=== PATIENT | female | born 1985 | race African-American/Black ===

== ENCOUNTER 2021-10-16 14:17 | Emergency (ER) | payer OTHER, SELFPAY ==
--- NOTE | ~2021-10-16 | US_ITS ---
EXAMINATION: US ABDOMEN LIMITED CLINICAL INFORMATION: Right upper quadrant pain, nausea, vomiting. COMPARISON: None TECHNIQUE: Real-time imaging of the right upper quadrant abdominal viscera. FINDINGS: PANCREAS: Normal. LIVER: The liver is normal in size. The liver contour is normal. Parenchymal echogenicity is increased suggestive of hepatic steatosis or other hepatocellular disease. No focal hepatic lesion. There is no intrahepatic biliary duct dilatation seen. GALLBLADDER: Normal. The gallbladder is physiologically distended without evidence of stones, sludge, polyps, wall thickening or pericholecystic fluid. COMMON BILE DUCT: Normal in caliber measuring 0.2 cm in diameter. RIGHT KIDNEY: Normal. No hydronephrosis. No renal calculi or focal parenchymal lesions. The kidney measures 12.2 cm in maximum dimension. FREE FLUID: None. US/US abdomen limited IMPRESSION: Hyperechoic liver parenchyma suggesting steatosis or other hepatocellular disease. Otherwise, unremarkable appearance of the visualized right upper quadrant structures.
[2021-10-16 14:19] VITALS: BP 141/91; PULSE 112; RESP 24; TEMP 35.9; O2SAT 100; BMI 28.0
[2021-10-16] MEDS: Ondansetron ODT 4 MG TAB.RAPDIS TRANSLINGU (14:24)
[2021-10-16 14:40] LABS: MANUAL DIFF FLAG NO
[2021-10-16 14:46] LABS: Basophils Percent Auto 0.3 % (0-2); Hematocrit 37.4 % (37.0-47.0); Hemoglobin 12.5 g/dl (12.0-16.0); Imm Gran Abs Auto 0.04 X10*3/uL (0.00-0.03); Imm Gran Pct Auto 0.4 % (0.0-0.4); Lymphocytes Absolute Auto 2.6 X10*3/uL (1.2-4.9); Lymphocytes Percent Auto 24.9 % (20-40); Mean Corpuscular HGB Conc 33.4 g/dl (31.0-35.0); Mean Corpuscular Hemoglobin 26.4 pg (27.0-33.0); Mean Corpuscular Volume 79.1 fL (80.0-98.0); Mean Platelet Volume 11.7 fL (9.4-12.3); Monocytes Absolute Auto 0.5 X10*3/uL (0.1-1.2); Monocytes Percent Auto 4.6 % (2-11); Neutrophils Absolute Auto 7.2 x10*3/uL (2.0-8.3); Neutrophils Percent Auto 69.8 % (45-73); Platelet Count 244 X10*3/uL (160-400); Red Blood Count 4.73 X10*6/uL (4.20-5.50); Red Cell Distribution Width 13.7 % (11.0-16.0); White Blood Count 10.4 X10*3/uL (4.8-10.8)
[2021-10-16 14:55] LABS: COVID-19 Test Negative (Negative)
[2021-10-16 14:59] LABS: Alanine Aminotransferase 19 U/L (0-31); Albumin Level 5.1 g/dL (3.5-5.0); Alkaline Phosphatase 62 U/L (39-117); Anion Gap 22 (12-20); Aspartate Amino Transferase 14 U/L (5-31); Bilirubin Direct 0.2 mg/dL (0.0-0.5); Bilirubin Total 0.4 mg/dL (0.0-1.0); Blood Urea Nitrogen 11 mg/dL (9-16); Calcium 9.9 mg/dL (8.4-10.2); Carbon Dioxide 18 mmol/L (22-29); Chloride 107 mmol/L (96-108); Creatinine Clr Calc Pharmacy 96.9; Estimated Glomerular Filt Rate > 60; Glucose Random 180 mg/dL (60-115); Lipase 16 U/L (8-78); Potassium 4.1 mmol/L (3.3-5.1); Sodium 143 mmol/L (135-145); Total Protein 8.3 g/dL (6.5-8.0)
--- NOTE | 2021-10-16 15:08 | ECG_ITS ---
Test Reason : VOMITING Blood Pressure : / mmHG Vent. Rate : 106 BPM Atrial Rate : 106 BPM P-R Int : 178 ms QRS Dur : 084 ms QT Int : 352 ms P-R-T Axes : 055 031 020 degrees QTc Int : 467 ms Sinus tachycardia Nonspecific T wave abnormality Abnormal ECG No previous ECGs available Referred By: Generic ED Physician Electronically Signed By:GABBY MARIN
[2021-10-16 15:13] LABS: Glucose, Whole Blood 177 mg/dL (60-115)
[2021-10-16 15:55] LABS: Ethanol < 10 mg/dL
[2021-10-16 16:05] LABS: HCG Quantitative < 2 mIU/mL
[2021-10-16 16:20] VITALS: BP 127/85; PULSE 92; RESP 20; TEMP 36.8; O2SAT 100
[2021-10-16] MEDS: 0.9 % Sodium Chloride 1,000 ML 999 ML IV ×2 (16:41→17:37)
[2021-10-16] MEDS: LORazepam 1 MG TABLET PO (16:45)
[2021-10-16] MEDS: Meclizine HCl 25 MG TABLET PO (16:45)
[2021-10-16 16:47] LABS: Magnesium 1.8 mg/dL (1.6-2.6)
--- NOTE | 2021-10-16 17:07 | ED_ITS ---
HPI - General Adult General Chief complaint: Nausea/Vomiting/Diarrhea Stated complaint: Vomiting Time Seen by Provider: 10/16/21 15:24 Source: patient Mode of arrival: ambulatory History of Present Illness HPI narrative: 35-year-old female with a past medical history of vertigo presenting to the ED complaining of abdominal pain, nausea, and vomiting since 22:00 last night. Reports emesis Q 10 minutes and unable to keep fluids down. Also reports room spinning dizziness similar to her vertigo, unable to take her meds today. Admits dizziness worse with position changes and head movement. patient also reports upper extremity contractures since ED arrival. Denies headache, vision change/ loss, fever/ chills, diarrhea, dysuria / hematuria, hematemesis, melena/bloody BMs, suspicious food intake Onset (ago): hour(s) Related Data Allergies Allergy/AdvReac Type Severity Reaction Status Date / Time oxycodone Allergy Anaphylaxis Verified 10/16/21 14:24 Review of Systems Review of Systems: Constitutional: No Fever, No Chills, No Fatigue, No Malaise ENT/Mouth:No Ear Pain, No Nasal Congestion, No sore throat, No Rhinorrhea, No Swallowing Difficulty Eyes: No Eye Pain, No Swelling, No Redness, No Vision Changes Cardiovascular: No Chest Pain, No SOB, No Edema, No Palpitations Respiratory: No Cough, No Sputum, No Dyspnea Gastrointestinal: + Nausea, + Vomiting, No Diarrhea, No Constipation, + Abdominal pain, No Hematochezia, No Melena Genitourinary: No Dysuria, No Urinary Frequency, No Hematuria, No Urinary Incontinence/retention, No Urgency, No Flank Pain Musculoskeletal: No joint pain, No Myalgias, No Joint Swelling Skin: No Skin Lesions, No rash Neuro: No Weakness, No Numbness, No Paresthesias, No Loss of Consciousness, + Dizziness, No Headache Yes all other systems are reviewed and are negative Constitutional: Constitutional: Reports as per [facility] Past Medical History Attestation statement: The following information was validated with the patient. Social History Social History Advance Directives: No Advance Directives Information Provided: No Physical Exam ED Vital Signs: Vital Signs - 24 hr 10/16/21 14:19 10/16/21 16:20 10/16/21 17:38 Temperature 96.6 F L 98.2 F 98.5 F Pulse Rate 112 H 92 88 Respiratory Rate 24 H 20 14 Blood Pressure 141/91 H 127/85 121/75 Pulse Oximetry 100 100 100 Oxygen Delivery Method Room Air Room Air Room Air BMI result Body Mass Index 28.0 Const Other: Hyperventilating, anxious General: healthy appearing and anxious Orientation/consciousness: patient oriented x3 Limitations: no limitations HENMT Head: Yes normal to inspection and Yes atraumatic Ears: hearing grossly normal bilaterally General nose exam: Normal external nose present Face and sinus: Yes normal facial exam Mouth: Normal oral and palatal mucosa present Eyes General: appearance normal, both eyes and all related structures Pupils: Equal, round and reactive pupils present EOM: EOMs intact bilaterally Neck Neck: Yes normal visual inspection and Yes no meningeal signs Resp Effort & Inspection: normal respiratory effort and no respiratory distress Auscultation: clear to auscultation bilaterally, no crackles, no rales, no rhonchi and no wheezes Cardio Rate: regular rate Heart sounds: S1 normal heart sound present and S2 normal heart sound present GI Inspection: Yes normal to inspection Palpation (GI): Soft to palpation, Tenderness to palpation present (GI) in the RUQ; with no rebound tenderness, no guarding and not rigid General: Yes no CVA tenderness Back/Spine/Pelvis Back: no CVA tenderness Skin Rashes: no rashes Wounds: no wounds Neuro Other: upper extremities contracted during evaluation. Neurovascularly intact x4 General: patient oriented x3, tone normal and no meningeal signs Cranial nerves: Yes Equal, round and reactive pupils present Cognition (Neuro): normal cognition Extrem General: Yes normal to inspection Course Course Course Narrative: -1723-- no leukocytosis. CO2 18 as expected from hyperventilation. Small anion gap of 22 likely from dehydration/ketosis. Beta quant negative - patient's symptoms have resolved / improved after p.o. Ativan. Denies dizziness at present. - patient refused CT as reports symptomatic improvement at present does not feel necessary anymore at this time > 1728- on re-evaluation patient is calm and cooperative, comfortable, moving upper extremities. CT head canceled -183--US abdomen limited IMPRESSION: Hyperechoic liver parenchyma suggesting steatosis or other hepatocellular disease. Otherwise, unremarkable appearance of the visualized right upper quadrant structures. > patient is tolerating p.o. in the ED without nausea or vomiting. Results discussed with patient including worrisome signs and symptoms and strict return precautions, and when to return to the emergency department. They verbalized understanding and feel safe for discharge at this time. Medical Decision Making MDM Narrative Medical decision making narrative: 35-year-old female with a past medical history of vertigo presenting to the ED complaining of abdominal pain, nausea, and vomiting since 22:00 last night. on exam afebrile, tachycardic and tachypneic likely from hyperventilation / anxiety on exam, abdomen soft with RUQ tenderness, no rebound or guarding. Concern for cholecystitis /lithiasis vs pancreatitis. Upper extremity contractures noted likely from increased anxiety vs metabolic abnormalities. Concern for BPPV/ve rtigo. low suspicion for ICH, appendicitis/diverticulitis, UTI, CVT or CVA plan: Labs, UA, head CT, abdomen ultrasound, IVF, p.o. Ativan, re-evaluate Medical Records Medical records reviewed: Yes I reviewed the patient's medical records. Lab Data Lab results reviewed: Yes I reviewed the patient's lab results. Result diagrams: 10/16/21 14:32 10/16/21 14:32 Labs: Lab Results 10/16/21 10/16/21 10/16/21 Range/Units 14:32 14:32 14:32 WBC 10.4 (4.8-10.8) X10*3/uL RBC 4.73 (4.20-5.50) X10*6/uL Hgb 12.5 (12.0-16.0) g/dl Hct 37.4 (37.0-47.0) % MCV 79.1 L (80.0-98.0) fL MCH 26.4 L (27.0-33.0) pg MCHC 33.4 (31.0-35.0) g/dl RDW 13.7 (11.0-16.0) % Plt Count 244 (160-400) X10*3/uL MPV 11.7 (9.4-12.3) fL Immature Gran % (Auto) 0.4 (0.0-0.4) % Neut % (Auto) 69.8 (45-73) % Lymph % (Auto) 24.9 (20-40) % [place] % (Auto) 4.6 (2-11) % Eos % (Auto) 0.0 (0-4) % Baso % (Auto) 0.3 (0-2) % Lymph # (Auto) 2.6 (1.2-4.9) X10*3/uL [place] # (Auto) 0.5 (0.1-1.2) X10*3/uL Eos # (Auto) 0.0 (0.0-0.4) X10*3/uL Baso # (Auto) 0.0 (0.0-0.2) X10*3/uL Abs Immat Gran (auto) 0.04 H (0.00-0.03) X10*3/uL Absolute Neuts (auto) 7.2 (2.0-8.3) x10*3/uL Absolute Nucleated RBC 0.000 (0.0-0.012) X10*3/uL Nucleated RBC % (auto) 0.0 (0.0-0.2) /100WBC Sodium 143 (135-145) mmol/L Potassium 4.1 (3.3-5.1) mmol/L Chloride 107 (96-108) mmol/L Carbon Dioxide 18 L (22-29) mmol/L Anion Gap 22 H (12-20) BUN 11 (9-16) mg/dL Creatinine 0.94 (0.5-1.4) mg/dL Estim Creat Clear Calc 96.9 Estimated GFR > 60 POC Glucose (60-115) mg/dL Random Glucose 180 H (60-115) mg/dL Calcium 9.9 (8.4-10.2) mg/dL Magnesium 1.8 (1.6-2.6) mg/dL Total Bilirubin 0.4 (0.0-1.0) mg/dL Direct Bilirubin 0.2 (0.0-0.5) mg/dL AST 14 (5-31) U/L ALT 19 (0-31) U/L Alkaline Phosphatase 62 (39-117) U/L Total Protein 8.3 H (6.5-8.0) g/dL Albumin 5.1 H (3.5-5.0) g/dL Lipase 16 (8-78) U/L Beta HCG, Quant < 2 mIU/mL Ethyl Alcohol < 10 mg/dL COVID-19 ([facility]) Negative (Negative) COVID-19 Clin Com See Note 10/16/21 Range/Units 15:07 WBC (4.8-10.8) X10*3/uL RBC (4.20-5.50) X10*6/uL Hgb (12.0-16.0) g/dl Hct (37.0-47.0) % MCV (80.0-98.0) fL MCH (27.0-33.0) pg MCHC (31.0-35.0) g/dl RDW (11.0-16.0) % Plt Count (160-400) X10*3/uL MPV (9.4-12.3) fL Immature Gran % (Auto) (0.0-0.4) % Neut % (Auto) (45-73) % Lymph % (Auto) (20-40) % [place] % (Auto) (2-11) % Eos % (Auto) (0-4) % Baso % (Auto) (0-2) % Lymph # (Auto) (1.2-4.9) X10*3/uL [place] # (Auto) (0.1-1.2) X10*3/uL Eos # (Auto) (0.0-0.4) X10*3/uL Baso # (Auto) (0.0-0.2) X10*3/uL Abs Immat Gran (auto) (0.00-0.03) X10*3/uL Absolute Neuts (auto) (2.0-8.3) x10*3/uL Absolute Nucleated RBC (0.0-0.012) X10*3/uL Nucleated RBC % (auto) (0.0-0.2) /100WBC Sodium (135-145) mmol/L Potassium (3.3-5.1) mmol/L Chloride (96-108) mmol/L Carbon Dioxide (22-29) mmol/L Anion Gap (12-20) BUN (9-16) mg/dL Creatinine (0.5-1.4) mg/dL Estim Creat Clear Calc Estimated GFR POC Glucose 177 H (60-115) mg/dL Random Glucose (60-115) mg/dL Calcium (8.4-10.2) mg/dL Magnesium (1.6-2.6) mg/dL Total Bilirubin (0.0-1.0) mg/dL Direct Bilirubin (0.0-0.5) mg/dL AST (5-31) U/L ALT (0-31) U/L Alkaline Phosphatase (39-117) U/L Total Protein (6.5-8.0) g/dL Albumin (3.5-5.0) g/dL Lipase (8-78) U/L Beta HCG, Quant mIU/mL Ethyl Alcohol mg/dL COVID-19 ([facility]) (Negative) COVID-19 Clin Com Discharge Plan Discharge Clinical Impression: Nausea & vomiting, Abdominal pain, Dizziness
[2021-10-16 17:38] VITALS: BP 121/75; PULSE 88; RESP 14; TEMP 36.9; O2SAT 100
== END 2021-10-16 18:46 | disposition home or self-care (01) ==
PROVIDERS: Physician Assistant; Emergency Provider Emergency Medicine
DX: R42 Dizziness and giddiness (principal); R11.2 Nausea with vomiting, unspecified; R10.9 Unspecified abdominal pain; Z20.822 Contact with and (suspected) exposure to COVID-19
CPT/HCPCS: 36415; 76705; 80048; 80076; 82077; 82947; 83690; 83735; 84702; 85025; 87635; 93005; 96360; 99284

== ENCOUNTER 2023-08-20 09:14 | Emergency (ER) | payer OTHER, SELFPAY ==
--- NOTE | 2023-08-20 | ECG_ITS ---
Test Reason : ABD PAIN, BACK PAIN Blood Pressure : / mmHG Vent. Rate : 073 BPM Atrial Rate : 073 BPM P-R Int : 202 ms QRS Dur : 086 ms QT Int : 364 ms P-R-T Axes : 027 043 031 degrees QTc Int : 401 ms Normal sinus rhythm Normal ECG When compared with ECG of 16-OCT-2021 15:12, Nonspecific T wave abnormality, improved in Lateral leads QT has shortened Referred By: Angela Morales Electronically Signed By:Binh Hanna
--- NOTE | ~2023-08-20 | CT_ITS ---
EXAMINATION: CT ABDOMEN AND PELVIS WITH CONTRAST CLINICAL INFORMATION: LUQ, LLQ pain COMPARISON: 12/20/[address] scan TECHNIQUE: Multidetector volumetric imaging was performed from the superior aspect of the liver through the pubic symphysis following administration of 85 mL Omnipaque 300 intravenous contrast. Sagittal and coronal reformatted images were obtained on the technologist workstation.. This CT examination was performed using dose optimization techniques as appropriate, variously including the following: *Automated exposure control *Adjustment of mA and/or kV according to patient size (this includes techniques or standardized protocols for targeted exams where dose is matched to indication/reason for exam; i.e. extremities or head) *Use of iterative reconstruction technique DLP: 555 mGy-cm FINDINGS: LUNG BASES: The visualized lung bases are unremarkable. LIVER, GALLBLADDER, AND BILIARY TREE: The liver is normal in size, shape, and attenuation. No focal hepatic lesion or biliary ductal dilatation is present. The gallbladder is unremarkable with no evidence of radiopaque gallstones, gallbladder wall thickening, or obvious pericholecystic inflammatory changes. PANCREAS: Unremarkable. SPLEEN: Unremarkable. ADRENAL GLANDS: Unremarkable. KIDNEYS AND URETERS: Left-sided hydronephrosis and hydroureter with mild delayed left-sided nephrogram phase. The left ureter is dilated up to a 4 mm calcification in the proximal left ureter at the level of L3/L4. Contralateral right kidney unremarkable BLADDER: Unremarkable. GASTROINTESTINAL TRACT: The small and large bowel are unremarkable. The appendix is unremarkable. ABDOMINAL WALL: No significant hernia is appreciated. LYMPHOVASCULAR STRUCTURES: No lymphadenopathy. The aorta is unremarkable. PELVIC VISCERA: Unremarkable. OSSEOUS STRUCTURES: Unremarkable. CT/CT abdomen pelvis w IV con IMPRESSION: Left-sided hydronephrosis and hydroureter extending up to a 4 mm calcification in the proximal left ureter at the level of L3/L4.
--- NOTE | 2023-08-20 09:26 | ED.ABDPAIN ---
HPI - Abdominal Pain General Chief Complaint: Abdominal Pain Stated Complaint: abd pain Time Seen by Provider: 08/20/23 09:26 Source: patient and RN notes reviewed Mode of arrival: ambulatory Limitations: no limitations History of Present Illness ED Provider: Angela Morales PA-C HPI narrative: This is a 37 [id number], with no known medical problems, who presents emergency department with complaints of severe left-sided abdominal pain which started this morning. She states that she has had sharp constant left-sided abdominal pain since awaking this morning. She also endorses nausea. She denies fevers, chills, chest pain, shortness of breath, vomiting, diarrhea or constipation. No chance of , states that her last period was last week, and ended yesterday. No abnormal vaginal discharge. Patient states that she had slight burning with urination last week which resolved with her menses. She states that she has this cyclically around her menses ever since a ?traumatic last year. No other complaints or concerns at this time. MD elicited complaint: abdominal pain Pertinent past history: none Onset (ago): hour(s) Pain Consistency: constant Location: LUQ and LLQ Severity: severe Pain scale (0-10): 10 Quality: stabbing Radiation: L flank Exacerbating factors: nothing Relieving factors: nothing Associated symptoms: nausea Related Data Previous Rx's ?Medication ?Instructions ?Recorded ondansetron 4 mg disintegrating 4 mg PO Q8H PRN nausea and 10/16/21 tablet vomiting #10 tabs ketorolac 10 mg tablet 10 mg PO Q6H PRN pain 5 days #20 08/20/23 tabs ondansetron 4 mg disintegrating 4 mg PO Q6H PRN nausea and 08/20/23 tablet vomiting #14 tabs prednisone 20 mg tablet 20 mg PO DAILY 5 days #5 tabs 08/20/23 tamsulosin 0.4 mg capsule (Flomax) 0.4 mg PO DAILY 2 weeks #14 caps 08/20/23 Allergies Allergy/AdvReac Type Severity Reaction Status Date / Time oxycodone Allergy Anaphylaxis Verified 08/20/23 09:29 Review of Systems Review of Systems Yes all other systems are reviewed and are negative Constitutional: Reports as per [facility] Past Medical History Attestation statement: The following information was validated with the patient. Social History Social History Smoked in Last 30 Days: No Use of substances other than those prescribed or required for medical reasons: No Advance Directives: No Advance Directives Information Provided: Yes Do you have a plan to hurt others: No Plan Physical Exam ED Vital Signs: Vital Signs - 24 hr 08/20/23 09:27 08/20/23 10:24 08/20/23 13:06 Temperature 98 F 98 F Pulse Rate 80 82 82 Respiratory Rate 16 18 18 Blood Pressure 165/108 H 146/90 H 146/77 H Pulse Oximetry 99 100 99 Oxygen Delivery Method Room Air Room Air Room Air 08/20/23 14:13 Temperature 98 F Pulse Rate 82 Respiratory Rate 18 Blood Pressure 146/77 H Pulse Oximetry 99 Oxygen Delivery Method Room Air BMI result Body Mass Index 28.2 Const General: cooperative, comfortable and no acute distress Orientation/consciousness: patient oriented x3 Limitations: no limitations HENMT Head: Yes normal to inspection, Yes normocephalic and Yes atraumatic Ears: hearing grossly normal bilaterally General nose exam: Normal external nose present Face and sinus: Yes normal facial exam Mouth: Normal oral and palatal mucosa present, oropharynx normal and moist mucous membranes Throat: Yes posterior oropharynx normal Eyes General: appearance normal, both eyes and all related structures Eyelids: Yes eyelids normal Conjunctivae: conjunctivae normal Sclerae: sclerae normal Pupils: Equal, round and reactive pupils present EOM: EOMs intact bilaterally Neck Neck: Yes normal visual inspection, Yes full ROM and Yes no lymphadenopathy Lymphatic: no lymphadenopathy noted Chest Chest palpation & inspection: normal inspection of the chest Resp Effort & Inspection: normal respiratory effort and able to speak in complete sentences Auscultation: clear to auscultation bilaterally, no crackles, no rales, no rhonchi and no wheezes Cardio Rate: regular rate Rhythm: regular rhythm Heart sounds: S1 normal heart sound present and S2 normal heart sound present GI Other: Abdomen is soft, with exquisite tenderness in the left upper and left lower quadrant,, with guarding. No rebound. Inspection: Yes normal to inspection Other: examination performed with coat maker, nuclear plant instrument technician present during the entirety. No cervical motion tenderness General: Yes Bimanual renal exam normal bilaterally External Female Exam: normal external appearance and normal appearance of the urethra Speculum Exam - Vagina: normal appearance of the vagina, normal palpation and normal vaginal discharge Speculum Exam - Cervix: normal appearance of the cervix, normal palpation and Cervical os closed Bimanual exam- vagina & uterus: normal palpation, normal palpation and uterine shape normal Bimanual Exam- Adnexa, other: normal adnexae and no tenderness Skin General skin exam: no rashes or lesions noted Trauma: no lacerations or abrasions Wounds: no wounds Neuro General: patient oriented x3 and moves all extremities Cranial nerves: Yes Equal, round and reactive pupils present Extrem General: Yes normal to inspection Right upper extremity: normal to inspection Left upper extremity: normal to inspection Right lower extremity: normal to inspection Left lower extremity: normal to inspection Course Reevaluation(s) Reevaluation #1: She is feeling much better after receiving Toradol, smiling, cheerful. Will continue to monitor pending CT scan. Time: 10:35 Reevaluation #2: CT scan returns revealing a left-sided hydronephrosis and hydroureter extending up to a 4 mm calcification in the proximal left ureter at the level of L3-L4. Discussed case with Dr. Vogel, recommending prednisone and Flomax. Will follow-up with patient outpatient. Upon discussion of this, patient is requesting a pelvic exam as she has had some foul smelling vaginal discharge around her menses. She states that this has been occurring for several months but has never been followed by her OBGYN. She denies any unusual discharge. Time: 11:55 Reevaluation #3: examination was performed with coat maker present, no acute abnormalities seen, will send out testing for further evaluation, advised that we will call with any normal results. She understands agrees with plan. Pain is feeling much better after receiving Tylenol and Toradol. Given return precautions. She understands and agrees with plan Patient stable for discharge. Medical Decision Making Medical Decision Making MDM Narrative: This is a 37-year-old female, with no known medical problems, who presents department with complaints of left-sided abdominal pain starting this morning. On arrival, blood pressure 165/108, patient appears to be uncomfortable secondary to pain. Left upper and left lower quadrant exquisite tenderness palpation. She endorses nausea. Differential diagnoses include SBO, diverticulitis, diverticulosis, gastroenteritis, nephrolithiasis, obstructive uropathy. Given severity of pain, will medicate with IV fluids, Zofran, and Toradol. She has an allergy to oxycodone which causes anaphylaxis, she is unsure if she is ever taken any other narcotic pain medication before. Plan: Labs, Zofran, Toradol, fluids, CT abdomen with IV contrast Differential Diagnosis Differential Diagnoses: The differential diagnosis associated with the presentation includes See above Admission/Observation Consideration of admission/observation: Escalation of care including admission/observation considered Lab Data MDM Lab Attestation statement: I reviewed the patient's lab results. No leukocytosis, H&H stable, lactic acidosis 2.6, repeat 1.9, hyperglycemia 241. 08/20/23 10:03 08/20/23 10:02 Labs: Lab Results 08/20/23 08/20/23 08/20/23 Range/Units 10:02 10:03 10:11 WBC 6.0 (4.8-10.8) X10*3/uL RBC 4.49 (4.20-5.50) X10*6/uL Hgb 12.2 (12.0-16.0) g/dl Hct 36.5 L (37.0-47.0) % MCV 81.3 (80.0-98.0) fL MCH 27.2 (27.0-33.0) pg MCHC 33.4 (31.0-35.0) g/dl RDW 13.5 (11.0-16.0) % Plt Count 218 (160-400) X10*3/uL MPV 11.9 (9.4-12.3) fL Immature Gran % (Auto) 0.3 (0.0-0.4) % Neut % (Auto) 44.8 L (45-73) % Lymph % (Auto) 45.4 H (20-40) % [place] % (Auto) 6.3 (2-11) % Eos % (Auto) 2.7 (0-4) % Baso % (Auto) 0.5 (0-2) % Lymph # (Auto) 2.7 (1.2-4.9) X10*3/uL [place] # (Auto) 0.4 (0.1-1.2) X10*3/uL Eos # (Auto) 0.2 (0.0-0.4) X10*3/uL Baso # (Auto) 0.0 (0.0-0.2) X10*3/uL Abs Immat Gran (auto) 0.02 (0.00-0.03) X10*3/uL Absolute Neuts (auto) 2.7 (2.0-8.3) x10*3/uL Absolute Nucleated RBC 0.000 (0.0-0.012) X10*3/uL Nucleated RBC % (auto) 0.0 (0.0-0.2) /100WBC Sodium 137 (135-145) mmol/L Potassium 4.1 (3.3-5.1) mmol/L Chloride 103 (96-108) mmol/L Carbon Dioxide 24 (22-29) mmol/L Anion Gap 14 (12-20) BUN 8 L (9-16) mg/dL Creatinine 0.84 (0.5-1.4) mg/dL Estim Creat Clear Calc 106.5 Estimated GFR > 60 Random Glucose 241 H (60-115) mg/dL Lactic Acid 2.6 H* (0.5-2.0) mmol/L Lactic Acid F/U @ 2Hr (0.5-2.0) mmol/L Calcium 9.4 (8.4-10.2) mg/dL Magnesium 1.9 (1.6-2.6) mg/dL Total Bilirubin 0.4 (0.0-1.0) mg/dL Direct Bilirubin 0.1 (0.0-0.5) mg/dL AST 14 (5-31) U/L ALT 16 (0-31) U/L Alkaline Phosphatase 58 (39-117) U/L Troponin I High Sens 3.0 (<3.5-17.0) ng/L Total Protein 7.5 (6.5-8.0) g/dL Albumin 4.5 (3.5-5.0) g/dL Lipase 30 (8-78) U/L Beta HCG, Quant < 2 mIU/mL Urine Color Yellow Urine Appearance Clear Urine pH 7.0 (5.0-9.0) Ur Specific Hudson 1.015 (1.005-1.025) Urine Protein Trace (Neg-Trace) mg/dL Urine Glucose (UA) 100 H (Negative) mg/dL Urine Ketones Negative (Negative) mg/dL Urine Blood Large (3+) H (Negative) Urine Nitrite Negative (Negative) Ur Leukocyte Esterase Negative (Negative) Urine RBC >20 H (0-2) /HPF Urine WBC 0-5 (0-5) /HPF Ur Squamous Epith Cells 0-2 (0-2) /HPF Urine Bacteria None Seen (None Seen) Hyaline Casts 0-2 (0-2) /LPF Chlam trachomat DNA PCR (Not Detect.) Influenza Type A (PCR) NEGATIVE (Negative) Influenza Type B (PCR) NEGATIVE (Negative) N.gonorrhoeae DNA (PCR) (Not Detect.) RSV RNA Qual (PCR) NEGATIVE (Negative) SARS-CoV-2 RNA (RT-PCR) NEGATIVE (Negative) T. vaginalis (PCR) (Not Detect) Bact Vaginosis (PCR) (Negative) C. krusei/glabrata (PCR) (Not Detect) Lois group (PCR) (Not Detect) 08/20/23 08/20/23 Range/Units 12:50 12:53 WBC (4.8-10.8) X10*3/uL RBC (4.20-5.50) X10*6/uL Hgb (12.0-16.0) g/dl Hct (37.0-47.0) % MCV (80.0-98.0) fL MCH (27.0-33.0) pg MCHC (31.0-35.0) g/dl RDW (11.0-16.0) % Plt Count (160-400) X10*3/uL MPV (9.4-12.3) fL Immature Gran % (Auto) (0.0-0.4) % Neut % (Auto) (45-73) % Lymph % (Auto) (20-40) % [place] % (Auto) (2-11) % Eos % (Auto) (0-4) % Baso % (Auto) (0-2) % Lymph # (Auto) (1.2-4.9) X10*3/uL [place] # (Auto) (0.1-1.2) X10*3/uL Eos # (Auto) (0.0-0.4) X10*3/uL Baso # (Auto) (0.0-0.2) X10*3/uL Abs Immat Gran (auto) (0.00-0.03) X10*3/uL Absolute Neuts (auto) (2.0-8.3) x10*3/uL Absolute Nucleated RBC (0.0-0.012) X10*3/uL Nucleated RBC % (auto) (0.0-0.2) /100WBC Sodium (135-145) mmol/L Potassium (3.3-5.1) mmol/L Chloride (96-108) mmol/L Carbon Dioxide (22-29) mmol/L Anion Gap (12-20) BUN (9-16) mg/dL Creatinine (0.5-1.4) mg/dL Estim Creat Clear Calc Estimated GFR Random Glucose (60-115) mg/dL Lactic Acid (0.5-2.0) mmol/L Lactic Acid F/U @ 2Hr 1.9 (0.5-2.0) mmol/L Calcium (8.4-10.2) mg/dL Magnesium (1.6-2.6) mg/dL Total Bilirubin (0.0-1.0) mg/dL Direct Bilirubin (0.0-0.5) mg/dL AST (5-31) U/L ALT (0-31) U/L Alkaline Phosphatase (39-117) U/L Troponin I High Sens (<3.5-17.0) ng/L Total Protein (6.5-8.0) g/dL Albumin (3.5-5.0) g/dL Lipase (8-78) U/L Beta HCG, Quant mIU/mL Urine Color Urine Appearance Urine pH (5.0-9.0) Ur Specific Hudson (1.005-1.025) Urine Protein (Neg-Trace) mg/dL Urine Glucose (UA) (Negative) mg/dL Urine Ketones (Negative) mg/dL Urine Blood (Negative) Urine Nitrite (Negative) Ur Leukocyte Esterase (Negative) Urine RBC (0-2) /HPF Urine WBC (0-5) /HPF Ur Squamous Epith Cells (0-2) /HPF Urine Bacteria (None Seen) Hyaline Casts (0-2) /LPF Chlam trachomat DNA PCR NOT DETECTED (Not Detect.) Influenza Type A (PCR) (Negative) Influenza Type B (PCR) (Negative) N.gonorrhoeae DNA (PCR) NOT DETECTED (Not Detect.) RSV RNA Qual (PCR) (Negative) SARS-CoV-2 RNA (RT-PCR) (Negative) T. vaginalis (PCR) NOT DETECTED (Not Detect) Bact Vaginosis (PCR) NEGATIVE (Negative) C. krusei/glabrata (PCR) NOT DETECTED (Not Detect) Lois group (PCR) NOT DETECTED (Not Detect) Radiology Impression Discussion of test interpretation with radiology: I have reviewed the radiologist's reading. External Record Review External record reviewed: Inpatient record, Office record, Outpatient record, Prior outpatient labs, Prior outpatient radiology, Primary care record and Outside ED record Medications Administered Discontinued Medications Generic Name Dose Route Start Last Admin Trade Name Freq PRN Reason Stop Dose Admin Acetaminophen 975 mg 08/20/23 12:48 08/20/23 13:08 Acetaminophen 325 Mg Tablet PO 08/20/23 12:49 975 mg ONCE ONE Administration Diphenhydramine HCl 50 mg 08/20/23 10:53 08/20/23 12:00 Diphenhydramine Hcl 50 Mg/Ml Vial IVPUSH 08/20/23 10:54 Not Given ONCE ONE Sodium Chloride 1,000 mls @ 999 mls/hr 08/20/23 09:40 08/20/23 12:00 Ns IV 08/20/23 10:40 Infused .Q1H1M ONE Infusion Sodium Chloride 1,000 mls @ 999 mls/hr 08/20/23 10:45 08/20/23 14:13 Ns IV 08/20/23 11:45 Infused .Q1H1M ONE Infusion Iohexol 100 ml 08/20/23 11:25 08/20/23 11:26 Iohexol 350 Mg/Ml 100 Ml Infus..Btl IV 08/20/23 11:26 85 ml ONCE ONE Administration Ketorolac Tromethamine 30 mg 08/20/23 09:41 08/20/23 10:46 Ketorolac Tromethamine 30 Mg/Ml Vial IVPUSH 08/20/23 09:42 30 mg ONCE ONE Administration Ondansetron HCl 4 mg 08/20/23 09:40 08/20/23 10:46 Ondansetron Hcl 4 Mg/2 Ml Vial IVPUSH 08/20/23 09:41 4 mg ONCE ONE Administration Discharge Plan Discharge Clinical Impression: Calculus of kidney Patient Disposition: Home, Self-Care Instructions: Kidney Stones (ED), How to Strain Your Urine (ED) Additional Instructions: You were seen in the emergency department due to left-sided flank pain. You have a kidney stone which is the cause of your symptoms. Please take prescribed medication as directed. Zofran is a medication that can help with nausea. Toradol can help with pain. You may also take Tylenol as needed. Drink plenty of fluids get plenty of rest. We will call you with any abnormal results from your swabs collected today. If any new or worsening symptoms occur including but not limited to worsening pain, fevers, nausea, vomiting, please return for re-evaluation. Prescriptions: New ketorolac 10 mg tablet 10 mg PO Q6H PRN (Reason: pain) 5 Days Qty: 20 0RF Rx Instructions: Do not exceed 40 mg in a 24 hour period. Had IM injection on 08/20/2023 ondansetron 4 mg tablet,disintegrating 4 mg PO Q6H PRN (Reason: nausea and vomiting) Qty: 14 0RF prednisone 20 mg tablet 20 mg PO DAILY 5 Days Qty: 5 0RF tamsulosin [Flomax] 0.4 mg capsule 0.4 mg PO DAILY 14 Days Qty: 14 0RF No Action ondansetron 4 mg tablet,disintegrating 4 mg PO Q8H PRN (Reason: nausea and vomiting) Qty: 10 0RF Interventions: ED Discharge Assessment Last Done: 08/20/23 14:13 Discharge Date/Time: 08/20/23 14:14 Print Language: Russian
[2023-08-20 09:27] VITALS: BP 165/108; PULSE 80; RESP 16; TEMP 36.6; O2SAT 99; BMI 28.2
[2023-08-20 10:15] LABS: MANUAL DIFF FLAG NO
--- NOTE | 2023-08-20 10:15 | PC.NURSE ---
Pt. on surveillance monitor at this time for continuous monitoring.
[2023-08-20 10:17] LABS: Basophils Percent Auto 0.5 % (0-2); Eosinophils Absolute Auto 0.2 X10*3/uL (0.0-0.4); Eosinophils Percent Auto 2.7 % (0-4); Hematocrit 36.5 % (37.0-47.0); Hemoglobin 12.2 g/dl (12.0-16.0); Imm Gran Abs Auto 0.02 X10*3/uL (0.00-0.03); Imm Gran Pct Auto 0.3 % (0.0-0.4); Lymphocytes Absolute Auto 2.7 X10*3/uL (1.2-4.9); Lymphocytes Percent Auto 45.4 % (20-40); Mean Corpuscular HGB Conc 33.4 g/dl (31.0-35.0); Mean Corpuscular Hemoglobin 27.2 pg (27.0-33.0); Mean Corpuscular Volume 81.3 fL (80.0-98.0); Mean Platelet Volume 11.9 fL (9.4-12.3); Monocytes Absolute Auto 0.4 X10*3/uL (0.1-1.2); Monocytes Percent Auto 6.3 % (2-11); Neutrophils Absolute Auto 2.7 x10*3/uL (2.0-8.3); Neutrophils Percent Auto 44.8 % (45-73); Platelet Count 218 X10*3/uL (160-400); Red Blood Count 4.49 X10*6/uL (4.20-5.50); Red Cell Distribution Width 13.5 % (11.0-16.0)
[2023-08-20 10:18] LABS: Appearance Urine Clear; Color Urine Yellow; Glucose Urine UA 100 mg/dL (Negative); Leukocyte Esterase Urine Negative (Negative); Nitrite Urine Negative (Negative); Specific Gravity - Urine 1.015 (1.005-1.025); UMIC TRIGGER UACC YES; Urine Blood Large (3+) (Negative); Urine Ketones Negative (Negative); Urine Protein Trace mg/dL (Neg-Trace)
[2023-08-20 10:23] LABS: Bacteria Urine None Seen (None Seen); Hyaline Casts Urine 0-2 /LPF (0-2); RBC Urine >20 /HPF (0-2); Squamous Epithelial Cell Urine 0-2 /HPF (0-2); WBC Urine 0-5 /HPF (0-5)
[2023-08-20 10:24] VITALS: BP 146/90; PULSE 82; RESP 18; O2SAT 100
[2023-08-20 10:34] LABS: Lactic Acid 2.6 mmol/L (0.5-2.0)
[2023-08-20 10:39] LABS: Alanine Aminotransferase 16 U/L (0-31); Albumin Level 4.5 g/dL (3.5-5.0); Alkaline Phosphatase 58 U/L (39-117); Anion Gap 14 (12-20); Aspartate Amino Transferase 14 U/L (5-31); Bilirubin Direct 0.1 mg/dL (0.0-0.5); Bilirubin Total 0.4 mg/dL (0.0-1.0); Blood Urea Nitrogen 8 mg/dL (9-16); Calcium 9.4 mg/dL (8.4-10.2); Carbon Dioxide 24 mmol/L (22-29); Chloride 103 mmol/L (96-108); Creatinine Clr Calc Pharmacy 106.5; Estimated Glomerular Filt Rate > 60; Glucose Random 241 mg/dL (60-115); Lipase 30 U/L (8-78); Magnesium 1.9 mg/dL (1.6-2.6); Potassium 4.1 mmol/L (3.3-5.1); Sodium 137 mmol/L (135-145); Total Protein 7.5 g/dL (6.5-8.0)
[2023-08-20 10:40] LABS: HCG Quantitative < 2 mIU/mL
[2023-08-20] MEDS: 0.9 % Sodium Chloride 1,000 ML 999 ML IV ×2 (10:45→12:26)
[2023-08-20] MEDS: Ketorolac Tromethamine 30 MG/ML VIAL IVPUSH (10:46)
[2023-08-20] MEDS: ondansetron HCL 4 MG/2 ML VIAL IVPUSH (10:46)
--- NOTE | 2023-08-20 11:16 | PC.NURSE ---
Per MIRNA Augustin, hold off on Benadryl at this time because pt. verbalizes that she's much more comfortable.
[2023-08-20] MEDS: iohexoL 350 MG/ML 100 ML INFUS..BTL IV (11:26)
[2023-08-20 11:33] LABS: Influenza A PCR NEGATIVE (Negative); Influenza B PCR NEGATIVE (Negative); Resp Syncy Virus RNA Qual PCR NEGATIVE (Negative); SARS COV2 PCR INHOUSE NEGATIVE (Negative)
[2023-08-20 12:13] LABS: Reflex Lactate? Lactic Acid Added
[2023-08-20 13:05] LABS: ~Lactic Acid-LAB USE ONLY 1.9 mmol/L (0.5-2.0)
[2023-08-20 13:06] VITALS: BP 146/77; PULSE 82; RESP 18; TEMP 36.6; O2SAT 99
[2023-08-20] MEDS: Acetaminophen 325 MG TABLET 975 MG PO (13:08)
[2023-08-20 14:13] VITALS: BP 146/77; PULSE 82; RESP 18; TEMP 36.6; O2SAT 99
[2023-08-20 15:55] LABS: Bacterial Vaginosis PCR NEGATIVE (Negative); Candida Group PCR NOT DETECTED (Not Detect); Candida glab krusei PCR NOT DETECTED (Not Detect); Trichomonas vaginalis PCR NOT DETECTED (Not Detect)
[2023-08-20 16:25] LABS: CT PCR NOT DETECTED (Not Detect.); NG PCR NOT DETECTED (Not Detect.)
== END 2023-08-20 14:14 | disposition home or self-care (01) ==
PROVIDERS: Physician Assistant Medical; Emergency Provider Emergency Medicine
DX: N20.0 Calculus of kidney (principal); R10.32 Left lower quadrant pain; R11.0 Nausea; R30.0 Dysuria; N89.8 Other specified noninflammatory disorders of vagina
CPT/HCPCS: 0241U; 0352U; 36415; 74177; 80048; 80076; 81001; 83605; 83690; 83735; 84484; 84702; 85025; 87040; 87491; 87591; 93005; 96361; 96374; 96375; 99284; 99285; J1885; J2405; Q9967

== ENCOUNTER → 2023-08-20 10:18 | Outpatient (BNV) | payer OTHER, SELFPAY | PROVIDERS: Emergency Provider Emergency Medicine; Visit Provider Internal Medicine Cardiovascular Disease | DX: R10.9 Unspecified abdominal pain (principal); M54.50 Low back pain, unspecified | CPT/HCPCS: 93010 ==

== ENCOUNTER 2023-10-20 11:13 | Outpatient (AMB) | payer OTHER, SELFPAY ==
--- NOTE | 2023-10-20 11:13 | A.OFFVIS_ITS ---
Intake Visit Reasons: nephrolithiasis Intake Note: New Patient presents for initial visit for Nephrolihiasis Urology Medications: none Blood Thinner: none Assembly Line Supervisor Required: No Accompanied by: Self / Same As Patient Allergies oxycodone Allergy (Verified 10/20/23 20:00) Anaphylaxis Medication List - Last Reconciled 10/20/23 by INA Garcia metformin 500 mg PO DAILY omeprazole 20 mg PO DAILY HPI Comments Details: Marcie is a very pleasant 37-year-old female patient. She has a past medical history of diabetes. She presents to the office today as a new patient for nephrolithiasis. In discussion with the patient today she reports having seeked emergency room care a proximally 2 months ago for left-sided abdominal pain she had been experiencing at which time a CT of the abdomen was ordered and performed. These results were reviewed with the patient today. Left-sided hydronephrosis and hydroureter with mild delayed left-sided nephrogram phase. The left ureter was dilated up to 4 mm calcification of the proximal left ureter at the level of L3-L4. The bladder is unremarkable. Patient reports shortly after she left the emergency room she did pass her kidney stone. When asked she reports any previous history and or surgical intervention for nephrolithiasis. She discusses her recent diagnosis of diabetes. She becomes tearful throughout today's visit as she discusses the recent loss of her sister as well as [id number]. She also discusses her sons upcoming surgery for his undescended testicles. She currently denies any bothersome urinary issues or concerns. In office urinalysis results reviewed with the patient today. We discussed at length potential causes of nephrolithiasis. She otherwise offers no other issues or concerns at this time. Review of Systems Const All systems reviewed & are unremarkable except as noted in HPI and below Physical Exam Const General: cooperative, healthy appearing, comfortable, no acute distress, well developed, alert and awake Orientation/consciousness: patient oriented x3 Limitations: no limitations HEENT Head: Yes normal to inspection, Yes normocephalic and Yes atraumatic Ears: hearing grossly normal bilaterally Eyes General: appearance normal, both eyes and all related structures Neck Neck: Yes normal visual inspection and Yes trachea midline Chest Chest palpation & inspection: normal inspection of the chest Resp Effort & Inspection: normal respiratory effort and able to speak in complete sentences Cardio Rate: regular rate GI Inspection: Yes normal to inspection General: Yes no CVA tenderness Back/Spine/Pelvis Back: no CVA tenderness Skin General skin exam: no rashes or lesions noted Neuro General: patient oriented x3 Extrem General: Yes normal to inspection Psych Appearance: grossly normal and well kempt Mental Status: mental status grossly normal Speech and movement: Normal speech and movement present and Clear speech present Affect: normal affect Attitude: cooperative Thought process: Normal thought process present Thought content: Normal thought content present Insight: Fair insight present (Psych) Judgement: Fair judgement present (Psych) Results AMB Urinalysis, Automated UA Leukoctes 0 Kj/uL Last Edit by [email or web address] on 10/20/23 11:31 UA Nitrite Negative Last Edit by [email or web address] on 10/20/23 11:31 UA Urobilinogen 0.2 mg/dL Last Edit by [email or web address] on 10/20/23 11:31 UA Protein 0 mg/dL Last Edit by [email or web address] on 10/20/23 11:31 UA pH 6.0 Last Edit by [email or web address] on 10/20/23 11:31 UA Blood 0 Juan Pablo/uL Last Edit by [email or web address] on 10/20/23 11:31 UA Specific Sidney 1.015 Last Edit by [email or web address] on 10/20/23 11:31 UA Ketone Negative Last Edit by [email or web address] on 10/20/23 11:31 UA Bilirubin 0 mg/dL Last Edit by [email or web address] on 10/20/23 11:31 UA Glucose 0 mg/dL Last Edit by [email or web address] on 10/20/23 11:31 Results Reviewed Results Reviewed: Laboratory Last Values Urine pH (Auto) 6.0 10/20/23 11:22 Specific Sidney (Auto) 1.015 10/20/23 11:22 Urine Protein (Auto) 0 mg/dL 10/20/23 11:22 Glucose (UA)(Auto) 0 mg/dL 10/20/23 11:22 Urine Ketones (Auto) Negative 10/20/23 11:22 Urine Blood (Auto) 0 Juan Pablo/uL 10/20/23 11:22 Urine Nitrite (Auto) Negative 10/20/23 11:22 Urine Bilirubin (Auto) 0 mg/dL 10/20/23 11:22 Urine Urobilinogen (Auto) 0.2 mg/dL 10/20/23 11:22 Leukocyte Esterase (Auto) 0 Kj/uL 10/20/23 11:22 Date of Service: 08/20/23 EXAMINATION: CT ABDOMEN AND PELVIS WITH CONTRAST FINDINGS: LUNG BASES: The visualized lung bases are unremarkable. LIVER, GALLBLADDER, AND BILIARY TREE: The liver is normal in size, shape, and attenuation. No focal hepatic lesion or biliary ductal dilatation is present. The gallbladder is unremarkable with no evidence of radiopaque gallstones, gallbladder wall thickening, or obvious pericholecystic inflammatory changes. PANCREAS: Unremarkable. SPLEEN: Unremarkable. ADRENAL GLANDS: Unremarkable. KIDNEYS AND URETERS: Left-sided hydronephrosis and hydroureter with mild delayed left-sided nephrogram phase. The left ureter is dilated up to a 4 mm calcification in the proximal left ureter at the level of L3/L4. Contralateral right kidney unremarkable BLADDER: Unremarkable. GASTROINTESTINAL TRACT: The small and large bowel are unremarkable. The appendix is unremarkable. ABDOMINAL WALL: No significant hernia is appreciated. LYMPHOVASCULAR STRUCTURES: No lymphadenopathy. The aorta is unremarkable. PELVIC VISCERA: Unremarkable. OSSEOUS STRUCTURES: Unremarkable. IMPRESSION: Left-sided hydronephrosis and hydroureter extending up to a 4 mm calcification in the proximal left ureter at the level of L3/L4. Assessment & Plan Assessment & Plan (1) Calculus of kidney: Code(s): N20.0 - Calculus of kidney Category: Medical (2) Hydronephrosis concurrent with and due to calculi of kidney and ureter: Code(s): N13.2 - Hydronephrosis with renal and ureteral calculous obstruction Category: Medical Plan In office urinalysis results reviewed with the patient today; as noted above. Will refer to Nephrology as patient with a longstanding history of family renal disease as well as renal failure Recent CT results reviewed with the patient today; as noted above. Discussed at length potential causes of nephrolithiasis. Patient currently denies any bothersome urinary issues or concerns. She reports be happy with current voiding parameters. Discussed possible near future metabolic workup to include 24 hour urine collection and labs. Will obtain renal ultrasound for further assessment evaluation in to ensure resolution of hydronephrosis. Follow-up in 3 months with imaging to be completed prior; or sooner with any issues, concerns, and or questions. Orders: Orders AMB Urinalysis Automated Today Z13.9 - Encounter for screening, unspecified US renal BI Today N20.0 - Calculus of kidney Referrals Nephrology Referral Z84.1 - Family history of disorders of kidney and ureter Patient Instructions: The patient had an opportunity to ask questions regarding the treatment plan. All questions were answered. Physical exam, labs, and imaging were discussed and reviewed in detail. As well as risks, benefits, and discussion of treatment choices. No major barriers to understanding were identified. The patient expressed understanding and agreement with the above treatment plan. The patient was made aware they should contact our office by phone for worsening of their current condition, the appearance of new symptoms, or with any questions or concerns. Compliance is encouraged with any medications and follow up testing that is ordered. It is a privilege to be allowed the opportunity to participate in? your urological care.? Again, if you have any questions or concerns If you have any questions or concerns please do not hesitate to contact me. The office is [phone]. This note is constructed using voice recognition software. While every effort has been made to ensure accuracy lead quality technician errors may have been included. Yours sincerely, NIA Garcia Coding Level of Care Code New Pt Level 3 (79005) Diagnoses Calculus of kidney N20.0 Hydronephrosis concurrent with and due to calculi of kidney and ureter N13.2
== END 2023-10-20 11:51 | disposition home or self-care (01) ==
PROVIDERS: Visit Provider Nurse Practitioner Family
DX: N20.0 Calculus of kidney (principal); N13.2 Hydronephrosis with renal and ureteral calculous obstruction; Z13.9 Encounter for screening, unspecified
CPT/HCPCS: 99203

== ENCOUNTER → 2023-10-20 11:13 | Outpatient (BNVA) | payer OTHER, SELFPAY | PROVIDERS: Visit Provider Nurse Practitioner Family | DX: N13.2 Hydronephrosis with renal and ureteral calculous obstruction (principal) | CPT/HCPCS: 81003 ==

== ENCOUNTER 2023-11-03 14:53 | Outpatient (AMB) | payer OTHER, SELFPAY ==
[2023-11-03 14:55] VITALS: BP 102/72; PULSE 78; O2SAT 98; BMI 26.9
--- NOTE | 2023-11-03 14:55 | HO.NEPHOV ---
Vital Signs 11/03/23 14:55 Height 5 ft 9 in Weight 182 lb BMI 26.9 BP 102/72 Blood Pressure Location Lt brachial Position Sitting Pulse 78 Pulse Source Pulse Oximeter Pulse Oximetry (%) 98 Oxygen Delivery Method Room Air Intake Visit Reasons: Fam history of disorders of kidney & ureter, LVM Rheumatology Specialist Required: No Accompanied by: Son Allergies oxycodone Allergy (Verified 11/03/23 14:58) Anaphylaxis Medication List - Last Reconciled 11/03/23 by Wally Mchugh MD acetaminophen (Tylenol) 325 mg PO QID PRN metformin 500 mg PO DAILY omeprazole 20 mg PO DAILY HPI Comments Details: Pleasant 37-year-old man with a history of renal stone he is here for renal evaluation. Back in 09/02/2023 she had left-sided ureteral stone with hydronephrosis. She has past stone spontaneously. No follow up imaging has been done yet. She is worried about her overall kidney function. She has no history of prior kidney stones. She has a history of elevated blood sugar. History of -induced hypertension which resolved. Review of Systems Const Denies fever(s) and Denies weight loss Card Denies chest pain Resp Denies cough and Denies hemoptysis GI Denies abdominal pain, Denies diarrhea and Denies nausea Musc Denies back pain Neuro Denies focal weakness Physical Exam Vital Signs: Last Vital Signs Pulse 78 11/03/23 14:55 BP 102/72 11/03/23 14:55 Pulse Ox 98 11/03/23 14:55 Oxygen Delivery Method Room Air 11/03/23 14:55 BMI result Body Mass Index 26.9 Const General: comfortable; No acute distress Orientation/consciousness: patient oriented x3 Eyes General: appearance normal, both eyes and all related structures Visual Staton: normal visual staton by confrontation Neck Neck: Yes supple and Yes no JVD Resp Effort & Inspection: normal respiratory effort and respiratory effort not decreased Auscultation: rhonchi Cardio Palpation: no palpable S3 and no palpable S4 Heart sounds: no rubs GI Inspection: Yes normal to inspection Palpation (GI): Soft to palpation Percussion: Yes normal to percussion Auscultation: normal bowel sounds General: Yes no CVA tenderness Back/Spine/Pelvis Back: no CVA tenderness Skin General skin exam: no petechiae and no purpura Neuro General: patient oriented x3 and no focal motor deficits Extrem General: No clubbing and No edema Results Reviewed Nephrology Results: Hgb 12.2 g/dl (12.0-16.0) 08/20/23 WBC 6.0 X10*3/uL (4.8-10.8) 08/20/23 Plt Count 218 X10*3/uL (160-400) 08/20/23 Sodium 140 mmol/L (135-145) 11/03/23 Potassium 4.7 mmol/L (3.3-5.1) 11/03/23 Chloride 105 mmol/L (96-108) 11/03/23 Carbon Dioxide 28 mmol/L (22-29) 11/03/23 BUN 10 mg/dL (9-16) 11/03/23 Creatinine 0.88 mg/dL (0.5-1.4) 11/03/23 Calcium 10.0 mg/dL (8.4-10.2) 11/03/23 PTH Intact 85.9 pg/mL (8.7-77.1) H 11/03/23 Urine Protein Trace mg/dL (Neg-Trace) 08/20/23 Assessment & Plan Assessment & Plan (1) Hydronephrosis concurrent with and due to calculi of kidney and ureter: Code(s): N13.2 - Hydronephrosis with renal and ureteral calculous obstruction Category: Medical (2) Diabetes mellitus: Code(s): E11.9 - Type 2 diabetes mellitus without complications Category: Medical Plan Pleasant 37 woman with a history of nephrolithiasis. She had left-sided hydronephrosis. She was spontaneously passed the stone. Obtain follow-up ultrasonogram to assess the resolution. Agree with Urology follow-up. Obtain 24 urine collection. Further recommendation based on the outcome of the 24 hour urine collection. She has elevated blood sugars Discussed importance of controlling blood sugars and increasing physical activity. Overall renal function is stable. She will benefit from low-salt diet and increasing p.o. fluid intake. Orders: Orders US renal BI 11/03/23 N13.2 - Hydronephrosis with renal and ureteral calculous obstruction Basic Metabolic Panel 11/03/23 N13.2 - Hydronephrosis with renal and ureteral calculous obstruction Uric Acid, 24Hr Urine Group 11/03/23 N13.2 - Hydronephrosis with renal and ureteral calculous obstruction Citric Acid 24hr Urine 11/03/23 N13.2 - Hydronephrosis with renal and ureteral calculous obstruction Hemoglobin A1c 11/03/23 E11.9 - Type 2 diabetes mellitus without complications Parathyroid Hormone Intact 11/03/23 N13.2 - Hydronephrosis with renal and ureteral calculous obstruction Sodium, 24Hr Urine Group 11/03/23 N13.2 - Hydronephrosis with renal and ureteral calculous obstruction Creatinine, 24 Hr Group 11/03/23 N13.2 - Hydronephrosis with renal and ureteral calculous obstruction Calcium, 24 Hr Ur 11/03/23 N13.2 - Hydronephrosis with renal and ureteral calculous obstruction Oxalate, 24 Hr 11/03/23 N13.2 - Hydronephrosis with renal and ureteral calculous obstruction Referrals Endocrinology Referral E11.9 - Type 2 diabetes mellitus without complications Coding Level of Care Code New Pt Level 4 (00325) Diagnoses Hydronephrosis concurrent with and due to calculi of kidney and ureter N13.2 Diabetes mellitus E11.9
== END 2023-11-03 15:22 | disposition home or self-care (01) ==
PROVIDERS: Referring Provider Nurse Practitioner Family; Visit Provider Internal Medicine Hypertension Specialist
DX: N13.2 Hydronephrosis with renal and ureteral calculous obstruction (principal); E11.9 Type 2 diabetes mellitus without complications
CPT/HCPCS: 99204

== ENCOUNTER 2023-11-03 14:53 | Outpatient (REF) | payer OTHER, SELFPAY ==
[2023-11-03 17:16] LABS: Estimated Average Glucose 134 mg/dL; Hemoglobin A1c % 6.3 % (<6.0)
[2023-11-03 17:30] LABS: Anion Gap 12 (12-20); Blood Urea Nitrogen 10 mg/dL (9-16); Carbon Dioxide 28 mmol/L (22-29); Chloride 105 mmol/L (96-108); Estimated Glomerular Filt Rate > 60; Glucose Random 90 mg/dL (60-115); Potassium 4.7 mmol/L (3.3-5.1); Sodium 140 mmol/L (135-145)
[2023-11-04 05:59] LABS: Parathyroid Hormone Intact 85.9 pg/mL (8.7-77.1)
== END 2023-11-03 14:54 | disposition home or self-care (01) ==
LOC: HO.LAB 14:53
PROVIDERS: PCP Internal Medicine; Referring Provider Nurse Practitioner Family; Visit Provider Internal Medicine Hypertension Specialist
DX: N13.2 Hydronephrosis with renal and ureteral calculous obstruction (principal); E11.9 Type 2 diabetes mellitus without complications
CPT/HCPCS: 36415; 80048; 83036; 83970

== ENCOUNTER 2023-11-10 10:10 | Outpatient (AMB) | payer OTHER, SELFPAY ==
[2023-11-10 10:13] VITALS: BP 104/74; PULSE 93; BMI 27.1
--- NOTE | 2023-11-10 10:13 | MHC.OFFVIS ---
Vital Signs 11/10/23 10:13 Height 5 ft 9 in Weight 183 lb 13.848 oz BMI 27.1 BP 104/74 Blood Pressure Location Lt brachial Position Sitting Pulse 93 Pulse Source Pulse Oximeter Intake Visit Reasons: T2DM Intake Note: New patient presents today for D2MT office visit. Last Diabetic Eye exam: 2 years ago Last Podiatry Visit: Doesn't have one Random Glucose: 124 mg/dl HgA1c: 6.3% 11/03/23 Alcohol Law Enforcement Agent Required: No Accompanied by: Child Allergies oxycodone Allergy (Verified 11/10/23 10:19) Anaphylaxis Medication List - Last Reconciled 11/10/23 by Tasha Chapa MD acetaminophen (Tylenol) 325 mg PO QID PRN metformin 500 mg PO DAILY omeprazole 20 mg PO DAILY HPI Comments Details: 37-year-old female coming in today for initial evaluation type 2 diabetes mellitus. Also noted have hyperparathyroidism. Type 2 diabetes mellitus Diagnosed July 2023 Was in the ER for kidney stone followed by PCP visit when blood work was done A1c she thinks was 9.8% or 8.9%, she isnt sure of the two Prior therapy: No other therapies Current regimen:Metformin 500 mg daily Increased urination has improved, increased thirst has improved. also feels some times she gets tachycardiac, sweaty,doesnt have a meter to check SMBG's no meter prescribed yet Complications Eye exam: Last eye exam was 2 years ago Neuropathy: no symptoms Kidney disease: normal kidney function , EGFR >September Macrovascular complications: No history of macrovascular complications. Last Podiatry Visit: Doesn't have one Random Glucose: 124 mg/dl HgA1c: 6.3% 11/03/23 Statin: CECILIA/ARB: none Exercise:started walking 15 to 20 mins daily Diet control: breakfast: eggs Lunch : protein with vegetebale Dinner : protein with vegetable quinoa He has never had any hospitalizations for hyperglycemia/hypoglycemia. Family history : sister, paternal aunts , grandmother have DM Family is in [place] mostly Sister of kidnney failure Hyperparathyroidism Was recently diagnosed with nephrolithiasis, CT abdomen from August 2023 shows left renal calculi. She pass this spontaneously. Following with Nephrology and Urology. PTH noted to be elevated at 85 from October 2023 Normal calcium levels No vitamin-D levels in the chart, patient is not on any calcium or vitamin-D supplements Denies any history of fractures/osteoporosis No family history of calcium problems or kidney stones Review of systems Constitutional: no fevers, chills HEENT:reports blurry vision Cardiac: No chest pain, discomfort or palpitations. Pulmonary: No SOB GI:has abdominal pain intermittenlyu Physical exam General: sitting comfortably in no acute distress HEENT: normocephalic/atraumatic, moist oral mucosa Neck: supple, symmetrical, no thyromegaly , no dorsocervical or supraclavicular fat pads Cardiac: normal heart sounds Pulm: normal breath sounds B/L, no added breath sounds Abd: not distended, no tenderness Extremities: no edema, no signs of myxedema Neuro: AAO x3, Speech: normal, no facial droop, moving all 4 extremities Skin: no rash Foot exam: intact sensation to monofilament, intact pulses, intact vibration PFSH Medical History (Updated 11/10/23 @ 11:05 by Tasha Chapa MD) Hyperparathyroidism Physical Exam Vital Signs: Last Vital Signs Pulse 93 11/10/23 10:13 BP 104/74 11/10/23 10:13 BMI result Body Mass Index 27.1 Results Reviewed Results Reviewed: Laboratory Tests 10/16/21 08/20/23 11/03/23 14:32 10:02 15:54 Creatinine 0.94 0.84 0.88 Estimated GFR > 60 > 60 > 60 Random Glucose 180 H 241 H 90 Estimat Average Glucose 134 Hemoglobin A1c % 6.3 H Calcium 9.9 9.4 10.0 D Magnesium 1.8 1.9 Albumin 5.1 H 4.5 PTH Intact 85.[address] abdomen 09/05 CT ABDOMEN AND PELVIS WITH CONTRAST CLINICAL INFORMATION: LUQ, LLQ pain COMPARISON: 12/20/[address] scan TECHNIQUE: Multidetector volumetric imaging was performed from the superior aspect of the liver through the pubic symphysis following administration of 85 mL Omnipaque 300 intravenous contrast. Sagittal and coronal reformatted images were obtained on the technologist workstation.. This CT examination was performed using dose optimization techniques as appropriate, variously including the following: *Automated exposure control *Adjustment of mA and/or kV according to patient size (this includes techniques or standardized protocols for targeted exams where dose is matched to indication/reason for exam; i.e. extremities or head) *Use of iterative reconstruction technique DLP: 555 mGy-cm FINDINGS: LUNG BASES: The visualized lung bases are unremarkable. LIVER, GALLBLADDER, AND BILIARY TREE: The liver is normal in size, shape, and attenuation. No focal hepatic lesion or biliary ductal dilatation is present. The gallbladder is unremarkable with no evidence of radiopaque gallstones, gallbladder wall thickening, or obvious pericholecystic inflammatory changes. PANCREAS: Unremarkable. SPLEEN: Unremarkable. ADRENAL GLANDS: Unremarkable. KIDNEYS AND URETERS: Left-sided hydronephrosis and hydroureter with mild delayed left-sided nephrogram phase. The left ureter is dilated up to a 4 mm calcification in the proximal left ureter at the level of L3/L4. Contralateral right kidney unremarkable BLADDER: Unremarkable. GASTROINTESTINAL TRACT: The small and large bowel are unremarkable. The appendix is unremarkable. ABDOMINAL WALL: No significant hernia is appreciated. LYMPHOVASCULAR STRUCTURES: No lymphadenopathy. The aorta is unremarkable. PELVIC VISCERA: Unremarkable. OSSEOUS STRUCTURES: Unremarkable. CT/CT abdomen pelvis w IV con IMPRESSION: Left-sided hydronephrosis and hydroureter extending up to a 4 mm calcification in the proximal left ureter at the level of L3/L4. US ABDOMEN LIMITED 11/04 CLINICAL INFORMATION: Right upper quadrant pain, nausea, vomiting. COMPARISON: None TECHNIQUE: Real-time imaging of the right upper quadrant abdominal viscera. FINDINGS: PANCREAS: Normal. LIVER: The liver is normal in size. The liver contour is normal. Parenchymal echogenicity is increased suggestive of hepatic steatosis or other hepatocellular disease. No focal hepatic lesion. There is no intrahepatic biliary duct dilatation seen. GALLBLADDER: Normal. The gallbladder is physiologically distended without evidence of stones, sludge, polyps, wall thickening or pericholecystic fluid. COMMON BILE DUCT: Normal in caliber measuring 0.2 cm in diameter. RIGHT KIDNEY: Normal. No hydronephrosis. No renal calculi or focal parenchymal lesions. The kidney measures 12.2 cm in maximum dimension. FREE FLUID: None. US/US abdomen limited IMPRESSION: Hyperechoic liver parenchyma suggesting steatosis or other hepatocellular disease. Otherwise, unremarkable appearance of the visualized right upper quadrant structures. Assessment & Plan Assessment & Plan (1) Diabetes mellitus: Code(s): E11.9 - Type 2 diabetes mellitus without complications Category: Medical Qualifiers: Diabetes mellitus type: type 2 Diabetes mellitus machine operations supervisor insulin use: without skilled nursing use Diabetes mellitus complication status: without complication Qualified Code(s): E11.9 - Type 2 diabetes mellitus without complications Plan: Patient with new onset of type 2 diabetes mellitus diagnosed in 2023 with a A1c of 8.9 or night and 0.8% per patient. Started on metformin 500 mg daily. Most recent A1c October 2023 has come down to 6.3% with intensive lifestyle modification and metformin. B:?Blood pressure is under [] control, for renal protection in the setting of diabetes. C:?LDL not done l. Goal is less than 90. will order D:?Diet control and healthy lifestyle was discussed in detail. Emphasis was made on exercise and physical activity in daily routine with at least 30-45 minutes of aerobic exercise 5-6 days a week. E: Last visit with operating room coordinator was 2 yrs ago. No diabetic retinopathy. Advised to see eye doctor, patient states she already has an eye doctor, does not need a referral. F: Foot care is good, advised about foot examination every day G: eGFR >60 Oct 06 and microalbumin/Cr ratio not done , will order Plan: -continue metformin 500 mg daily, patient is able to tolerate it if not able to tolerate can change to XR formulation -A1c already at goal <7 % -encouraged to continue lifestyle modification -ordered lipid panel, urine microalbumin, BMP for now -plastering contractor referral placed -see Ophthalmology for annual diabetic exam -given her young age we will also check for a markie 65 and islet cell antibodies though patient is overweight with strong family history of diabetes so this is very likely type 2 diabetes mellitus. -follow up in 3 months with repeat A1c , if patient has excellent control we will discharge to PCP. (2) Hyperparathyroidism: Code(s): E21.3 - Hyperparathyroidism, unspecified Category: Medical Plan: Patient noted to have elevated PTH of 85 from October 2023. No history of kidney disease. Had her 1st episode of kidney stone recently in July 2023. She is not on any vitamin-D supplements, no vitamin-D level in the chart. Normal calcium levels. No symptoms of hypercalcemia. We will check vitamin-D, we will repeat PTH level. Most likely this is from vitamin-D deficiency and will need vitamin-D replacement. She is already pending a 24 hour urine calcium evaluation ordered by Nephrology. Plan:-ordered labs -follow up in 3 months Plan I spent 45 minutes in reviewing the record, seeing the patient and documenting in the medical record. Orders: Orders Microalbumin, Random (w Creat) Today E11.9 - Type 2 diabetes mellitus without complications Vitamin D 25-OH Total Today E11.9 - Type 2 diabetes mellitus without complications, E21.3 - Hyperparathyroidism, unspecified Parathyroid Hormone Intact Today E11.9 - Type 2 diabetes mellitus without complications, E21.3 - Hyperparathyroidism, unspecified Calcium Today E11.9 - Type 2 diabetes mellitus without complications, E21.3 - Hyperparathyroidism, unspecified Glucose Random Today E11.9 - Type 2 diabetes mellitus without complications Lipid Panel Today E11.9 - Type 2 diabetes mellitus without complications Vitamin B12 Today E11.9 - Type 2 diabetes mellitus without complications Basic Metabolic Panel Today E11.9 - Type 2 diabetes mellitus without complications Creatinine Urine Today E11.9 - Type 2 diabetes mellitus without complications Albumin Level Today E11.9 - Type 2 diabetes mellitus without complications, E21.3 - Hyperparathyroidism, unspecified Phosphorus Today E11.9 - Type 2 diabetes mellitus without complications, E21.3 - Hyperparathyroidism, unspecified Glutamic acid decarboxylase Ab Today E11.9 - Type 2 diabetes mellitus without complications Islet Cell Antibody Scrn/Titer Today E11.9 - Type 2 diabetes mellitus without complications C Peptide Today E11.9 - Type 2 diabetes mellitus without complications Referrals Cupola Melting Supervisor Nutrition Referral E11.9 - Type 2 diabetes mellitus without complications Medications: New blood sugar diagnostic (Tango NetworksTouch Verio test strips) check blood sugars once daily 100 ea 3RF lancets (Tango NetworksTouch Delica Plus Lancet) check blood sugars once daily 100 ea 3RF metformin 500 mg PO DAILY 90 tabs 3RF cyanocobalamin (vitamin B-12) 1,000 mcg PO DAILY 30 caps 11RF lancing device with lancets (Tango NetworksTouch Delica Plus Lancing Device kit) check blood sugars once daily 1 ea 1RF blood-glucose meter (Tango NetworksTouch Verio Flex Meter) check blood sugars once daily 1 ea 0RF Patient Instructions: do fasting blood work Do urine test Continue metformin 500 mg daily Lifestyle modification advised Check feet daily See eye doctor Start taking vitamin B 12 1000 mcg daily See plastering contractor referral placed Check blood sugars 2 or 3 times a week Fasting targetr 80 to 130 Post meal 2 hrs< 140 Weight loss counselling ? Limit added sugars to less than 25 grams daily. There are 4.2 grams of sugar per teaspoon of sugar. A teaspoon of honey has 6 grams of sugar! Bread also can have more sugar than you think-check labels ? No soda or juices. Drink water, unsweetened iced tea or seltzer ? Limit eating out/take out or prepared meals to twice weekly at most ? Avoid red meat, hot dogs, joyner and deli meat. Substitute plant protein for animal protein as much as you can. Beans, nuts, tofu, soy milk ? Limit cheese to 1 ounce a few times weekly ? Eat high fiber foods like beans, apples and green veggies, salsa is a great snack with whole grain cracker like Wasa ? Look for the whole grain stamp when choosing bread etc. Aim for 48 grams of whole grains daily. Whole wheat does not equal whole grains! ? Don't keep tempting treats in the house. Go out once in a while for a treat. ? Don't eat anything deep fried or cream based-no sour cream Coding Level of Care Code New Pt Level 4 (14152) Diagnoses Type 2 diabetes mellitus without complication, without long-term current use of insulin E11.9 Diabetes mellitus type: type 2 Diabetes mellitus skilled nursing insulin use: without machine operations supervisor use Diabetes mellitus complication status: without complication Hyperparathyroidism E21.3 Time Spent (min) 45
[2023-11-10 10:25] LABS: Glucose, Whole Blood 124 mg/dL (60-115)
== END 2023-11-10 11:03 | disposition home or self-care (01) ==
PROVIDERS: PCP Internal Medicine; Visit Provider Student in an Organized Health Care Education/Training Program
DX: E11.9 Type 2 diabetes mellitus without complications (principal); E21.3 Hyperparathyroidism, unspecified
CPT/HCPCS: 99204

== ENCOUNTER 2023-11-10 12:58 | Outpatient (REF) | payer OTHER, SELFPAY ==
--- NOTE | ~2023-11-10 | US_ITS ---
EXAMINATION: US RETROPERITONEAL LIMITED (RENAL ONLY) CLINICAL INFORMATION: Hydronephrosis with renal and ureteral calculus obstruction.. COMPARISON: CT scan of the abdomen and pelvis dated 08/20/2023. TECHNIQUE: Bilateral renal ultrasound was performed. FINDINGS: RIGHT KIDNEY: 11.5 x 6.3 x 6.2 cm (SAG x AP x TRV). The kidney is normal in size, contour, and echogenicity. Renal cortical thickness is normal. No calculi or focal parenchymal lesions. No hydronephrosis. LEFT KIDNEY: 11.4 x 5.8 x 5.3 cm (SAG x AP x TRV). The kidney is normal in size, contour, and echogenicity. Renal cortical thickness is normal. No focal parenchymal lesions. There is a nonobstructing 0.6 x 0.5 x 0.4 cm calcification in the upper pole of the left kidney and a 0.4 x 0.5 x 0.5 cm nonobstructing calcification in the mid left kidney. No hydronephrosis. US/US renal BI IMPRESSION: 1. Nonobstructing left renal calculi. 2. No evidence of hydronephrosis. Electronically signed by: Jazmyn Clark MD 11/10/2023 11:36 PM EDT
== END 2023-11-10 12:59 | disposition home or self-care (01) ==
LOC: HO.US 12:58
PROVIDERS: PCP Internal Medicine; Visit Provider Internal Medicine Hypertension Specialist
DX: N13.2 Hydronephrosis with renal and ureteral calculous obstruction (principal); E11.9 Type 2 diabetes mellitus without complications; E21.3 Hyperparathyroidism, unspecified
CPT/HCPCS: 76775; 82947

== ENCOUNTER 2023-11-11 08:36 | Outpatient (REF) | payer OTHER, SELFPAY ==
[2023-11-11 09:36] LABS: Creatinine, mg/dL 95.32
[2023-11-11 09:47] LABS: Creatinine, mg/dL 93.37; Uric Acid, mg/dL 39.3 mg/dL
[2023-11-11 09:53] LABS: Creatinine, 24Hr Urine 1.4 G/Day (1.0-2.0); Creatinine, 24Hr Urine 1.5 G/Day (1.0-2.0); Sodium 24 Hr Urine 83.9 mmol/Day (40-220); Total Volume 24 Hour Urine 1525 mL; Uric Acid, 24 Hr Urine 599.3 mg/Day (250-750)
[2023-11-13 17:03] LABS: Calcium, 24 Hr Urine 140 mg/24 h; Calcium/Creatinine Ratio 93 mg/g creat (30-275); Creatinine 24Hr Urine 1.51 g/24 h (0.50-2.15)
[2023-11-15 22:13] LABS: 24hr Urine Total Volume 1525 mL; Citric Acid, 24hr Urine 1206 mg/24 h (100-1300); Citric Acid/Creat Ratio 24U 824 mg/g creat (180-1070); Creatinine, 24U 1.46 g/24 h (0.50-2.15)
[2023-11-25 00:27] LABS: 24hr Urine Total Volume 1525 mL; Oxalic Acid 24 Urine 51.1 mg/24 h (3.6-38.0)
== END 2023-11-11 08:37 | disposition home or self-care (01) ==
LOC: HO.LNP 08:36
PROVIDERS: Visit Provider Internal Medicine Hypertension Specialist
DX: N13.2 Hydronephrosis with renal and ureteral calculous obstruction (principal)
CPT/HCPCS: 82340; 82507; 83945; 84300; 84560

== ENCOUNTER 2023-12-05 08:52 | Outpatient (REF) | payer OTHER, SELFPAY ==
[2023-12-05 10:47] LABS: Parathyroid Hormone Intact 85.6 pg/mL (8.7-77.1)
[2023-12-05 11:02] LABS: Albumin Level 4.8 g/dL (3.5-5.0); Anion Gap 12 (12-20); Blood Urea Nitrogen 12 mg/dL (9-16); Calcium 9.6 mg/dL (8.4-10.2); Carbon Dioxide 27 mmol/L (22-29); Chloride 107 mmol/L (96-108); Cholesterol 206 mg/dL (<200); Estimated Glomerular Filt Rate > 60; Glucose Random 120 mg/dL (60-115); HDL Cholesterol 52 mg/dL (>40); LDL Cholesterol Calculated 137 mg/dL (<100); Phosphorus 2.8 mg/dL (2.7-4.5); Potassium 4.1 mmol/L (3.3-5.1); Sodium 142 mmol/L (135-145); Triglycerides 87 mg/dL (<150)
[2023-12-05 11:03] LABS: Vitamin D 25-OH Total 32.1 ng/mL (>30)
[2023-12-05 11:13] LABS: Creatinine Urine 170.21 mg/dL; Microalbum/Creatinine Ratio Ur 23.5 ug/mg cr (<30)
[2023-12-05 11:14] LABS: Vitamin B12 1022 pg/mL (200-900)
[2023-12-06 15:37] LABS: C Peptide 2.67 ng/mL (0.80-3.85)
[2023-12-09 21:32] LABS: Glutamic acid decarboxylase Ab <5 IU/mL (<5)
[2023-12-14 01:14] LABS: Islet Cell Antibody Screen NEGATIVE (NEGATIVE)
== END 2023-12-05 08:53 | disposition home or self-care (01) ==
LOC: HO.LAB 08:52
PROVIDERS: PCP Internal Medicine; Visit Provider Student in an Organized Health Care Education/Training Program
DX: E11.9 Type 2 diabetes mellitus without complications (principal); E21.3 Hyperparathyroidism, unspecified
CPT/HCPCS: 36415; 80048; 80061; 82040; 82043; 82306; 82570; 82607; 83970; 84100; 84681; 86341

== ENCOUNTER 2023-12-25 15:28 | Outpatient (AMB) | payer OTHER, SELFPAY ==
[2023-12-25 15:27] VITALS: BP 122/90; PULSE 101; O2SAT 98; BMI 20.8
--- NOTE | 2023-12-25 15:27 | HO.NEPHOV_ITS ---
Vital Signs 12/25/23 15:27 12/25/23 15:47 Height 5 ft 9 in Weight 141 lb BMI 20.8 BP 122/90 H 120/80 Blood Pressure Location Lt brachial Lt brachial Position Sitting Sitting Pulse 101 H Pulse Source Pulse Oximeter Pulse Oximetry (%) 98 Oxygen Delivery Method Room Air Intake Visit Reasons: DM/ Conf Foreign Agent Required: No Accompanied by: Daughter Allergies oxycodone Allergy (Verified 12/25/23 15:30) Anaphylaxis Medication List - Last Reconciled 12/25/23 by Wally Mchugh MD acetaminophen (Tylenol) 325 mg PO QID PRN blood sugar diagnostic (OneTouch Verio test strips) check blood sugars once daily blood sugar diagnostic (FreeStyle Lite Strips) As directed test 3 times day blood-glucose meter (OneTouch Verio Flex Meter) check blood sugars once daily blood-glucose meter (FreeStyle Lite Meter kit) As directed cyanocobalamin (vitamin B-12) 1,000 mcg PO DAILY lancets (FreeStyle Lancets) As directed metformin 500 mg PO DAILY nortriptyline 10 mg PO BEDTIME HPI Comments Details: Pleasant 37-year-old man with a history of renal stone he is here for renal evaluation. Back in 09/02/2023 she had left-sided ureteral stone with hydronephrosis. She has past stone spontaneously. No follow up imaging has been done yet. She is worried about her overall kidney function. She has no history of prior kidney stones. She has a history of elevated blood sugar. History of -induced hypertension which resolved. 12/25/2023. Recently hospitalized with numbness. Stroke was ruled out she was diagnosed with migraine. Nortriptyline has been started [facility] Medical History (Updated 11/10/23 @ 11:05 by Tasha Chapa MD) Hyperparathyroidism Physical Exam Vital Signs: Last Vital Signs Pulse 101 H 12/25/23 15:27 BP 120/80 12/25/23 15:47 Pulse Ox 98 12/25/23 15:27 Oxygen Delivery Method Room Air 12/25/23 15:27 BMI result Body Mass Index 20.8 Results Reviewed Nephrology Results: Hgb 12.2 g/dl (12.0-16.0) 08/20/23 WBC 6.0 X10*3/uL (4.8-10.8) 08/20/23 Plt Count 218 X10*3/uL (160-400) 08/20/23 Sodium 142 mmol/L (135-145) 12/05/23 Potassium 4.1 mmol/L (3.3-5.1) 12/05/23 Chloride 107 mmol/L (96-108) 12/05/23 Carbon Dioxide 27 mmol/L (22-29) 12/05/23 BUN 12 mg/dL (9-16) 12/05/23 Creatinine 0.80 mg/dL (0.5-1.4) 12/05/23 Calcium 9.6 mg/dL (8.4-10.2) 12/05/23 Phosphorus 2.8 mg/dL (2.7-4.5) 12/05/23 PTH Intact 85.6 pg/mL (8.7-77.1) H 12/05/23 Urine Protein Trace mg/dL (Neg-Trace) 08/20/23 Urine Creatinine 170.21 mg/dL 12/05/23 Renal US 11/10/23 Assessment & Plan Assessment & Plan (1) Hyperparathyroidism: Code(s): E21.3 - Hyperparathyroidism, unspecified Category: Medical (2) Hydronephrosis concurrent with and due to calculi of kidney and ureter: Code(s): N13.2 - Hydronephrosis with renal and ureteral calculous obstruction Category: Medical (3) Diabetes mellitus: Code(s): E11.9 - Type 2 diabetes mellitus without complications Category: Medical Qualifiers: Diabetes mellitus type: type 2 Diabetes mellitus mcfp insulin use: without long chain dyeing machine operator use Diabetes mellitus complication status: without complication Qualified Code(s): E11.9 - Type 2 diabetes mellitus without complications Plan Pleasant 37 woman with a history of nephrolithiasis. She had left-sided hydronephrosis. She was spontaneously passed the stone. Follow up renal ultrasonogram did not reveal any hydronephrosis. There was a nonobstructing stone on the left midpole measuring 0.5 cm. Continue with Urology follow-up. 24 urine collection collection showed a volume of 1525 mL. Urine sodium excretion and calcium excretion were acceptable. Oxalate excretion was elevated 51. Encouraged to increase fluid intake to maintain urine output of 2 L Continue low-sodium diet. She should Cut back on oxalate intake. She has been eating plenty of peanuts along with Spinach Recheck twenty-four urine collection for oxalate excretion while she is on low oxalate diet Mild secondary hyperparathyroidism. Serum calcium is normal. Intact PTH is still elevated 86. She follows with the endocrinology Overall renal function is stable. Orders: Orders Sodium, 24Hr Urine Group 4 Weeks E21.3 - Hyperparathyroidism, unspecified Basic Metabolic Panel 6 Months E21.3 - Hyperparathyroidism, unspecified, N13.2 - Hydronephrosis with renal and ureteral calculous obstruction Phosphorus 6 Months E21.3 - Hyperparathyroidism, unspecified, N13.2 - Hydronephrosis with renal and ureteral calculous obstruction Uric Acid 6 Months E21.3 - Hyperparathyroidism, unspecified, N13.2 - Hydronephrosis with renal and ureteral calculous obstruction UA and rflx microscopic 6 Months E21.3 - Hyperparathyroidism, unspecified, N13.2 - Hydronephrosis with renal and ureteral calculous obstruction Creatinine, 24 Hr Group 4 Weeks E21.3 - Hyperparathyroidism, unspecified Oxalate, 24 Hr 4 Weeks E21.3 - Hyperparathyroidism, unspecified Parathyroid Hormone Intact 6 Months E21.3 - Hyperparathyroidism, unspecified, N13.2 - Hydronephrosis with renal and ureteral calculous obstruction Coding Level of Care Code Est Pt Level 4 (44526) Diagnoses Hyperparathyroidism E21.3 Hydronephrosis concurrent with and due to calculi of kidney and ureter N13.2 Type 2 diabetes mellitus without complication, without long-term current use of insulin E11.9 Diabetes mellitus type: type 2 Diabetes mellitus mcfp insulin use: without long chain dyeing machine operator use Diabetes mellitus complication status: without complication
[2023-12-25 15:47] VITALS: BP 120/80
== END 2023-12-25 15:54 | disposition home or self-care (01) ==
PROVIDERS: Visit Provider Internal Medicine Hypertension Specialist
DX: E21.3 Hyperparathyroidism, unspecified (principal); N13.2 Hydronephrosis with renal and ureteral calculous obstruction; E11.29 Type 2 diabetes mellitus with other diabetic kidney complication
CPT/HCPCS: 99214

== ENCOUNTER 2023-12-26 08:33 | Outpatient (AMB) | payer OTHER, SELFPAY ==
--- NOTE | 2023-12-26 08:48 | A.OFFVIS_ITS ---
VS Expanded 12/26/23 08:49 12/26/23 09:00 Height 5 ft 9 in 5 ft 9 in Weight 180 lb 1.883 oz 180 lb BMI 26.6 26.6 Intake Visit Reasons: T2DM/LVM Allergies oxycodone Allergy (Verified 12/25/23 15:30) Anaphylaxis Nutrition Presentation Details: Pt presents for MNT for T2DM food frequency fish 0-1/wk dairy 0-2 x/wk fruits 1-2/day starches 20 ve/d etoh/smokin--- exercise: daily life activities + 15 min/d Pt reports A1c has improved from around 8% ,months ago to 6.3% in 10/2023 BS Monitoring Most Recent Diabetes Results: Microalb/Creat Ratio 23.5 ug/mg cr (<30) 12/05/23 Cholesterol 206 mg/dL (<200) H 12/05/23 HDL Cholesterol 52 mg/dL (>40) 12/05/23 Triglycerides 87 mg/dL (<150) 12/05/23 Creatinine 0.80 mg/dL (0.5-1.4) 12/05/23 Blood Urea Nitrogen 12 mg/dL (9-16) 12/05/23 Sodium 142 mmol/L (135-145) 12/05/23 Potassium 4.1 mmol/L (3.3-5.1) 12/05/23 Chloride 107 mmol/L (96-108) 12/05/23 Carbon Dioxide 27 mmol/L (22-29) 12/05/23 Calcium 9.6 mg/dL (8.4-10.2) 12/05/23 AST 14 U/L (5-31) 08/20/23 ALT 16 U/L (0-31) 08/20/23 Total Protein 7.5 g/dL (6.5-8.0) 08/20/23 Albumin 4.8 g/dL (3.5-5.0) 12/05/23 LVD-Skagbxy-My.Jeor Equation Height: 5 ft 9 in Weight: 180 lb Resting Metabolic Rate: 1558.14 Calculated Activity Level: Mild Activity Calories Needed to Maintain Weight: 2142.44 Diagnosis Nutrition problem #1: food nutri know defi As related to (etiology) #1: diagnosis [facility] Medical History (Updated 09/27/24 @ 11:05 by Tasha Chapa MD) Hyperparathyroidism Assessment & Plan Assessment & Plan (1) Diabetes mellitus: Code(s): E11.9 - Type 2 diabetes mellitus without complications Category: Medical Qualifiers: Diabetes mellitus type: type 2 Diabetes mellitus splitting machine operator helper insulin use: without jail use Diabetes mellitus complication status: without complication Qualified Code(s): E11.9 - Type 2 diabetes mellitus without complications Plan: Wt: 82 Kg ( 01/06 ) Est kcal needs as per MSJ: 2100 (40% carb, 30% protein/fat) Est fluid needs as per 25-30 ml/d: 2500 Est prot per day as per 1 g/kg bw: 82 Recommend fiber intake : 8-10 g per day and gradually increase to 25-28 g per day for women and 35-38 g for men or as tolerated Recommend sodium intake per day : less than 2300 mg Educated patient on: ( R = reviewed V = verbalizes understanding N/R = needs review N/A = not applicable * Food sources of carbohydrate, adequate serving sizes and its role in various health conditions: R * Differences between complex carbohydrates a simple carbohydrates, role of fiber in diet: R V N/R * Lean protein sources of foods: R V NR * Differences between types of fats and role in diet (mono on saturated fat fatty acids, saturated fatty acids, trans fats): R V N/R * Food sources of sodium in salt and healthy modifications for heart health in [facility]: R V R/V * Vitamins and minerals: R V N/R * Healthy plate method concept: R * Physical activity: Benefits a precaution: R V N/R * Hypoglycemia protocol (rule of 15): R V N/R * Dietary prevention of Hyperglycemia: R Patient Instructions: Reduce on highly processed meats (salami/bologna/sausages/kielbasas and similar protein foods) INclude at least 2 servings of dairy in your diet (yogurt, lactose free milk ) Follow healthy plate method (reducing total carbs to less than 70g at a meal) Coding Level of Care Code Nutr Indiv Intake (10063) Diagnoses Type 2 diabetes mellitus without complication, without long-term current use of insulin E11.9 Diabetes mellitus type: type 2 Diabetes mellitus splitting machine operator helper insulin use: without jail use Diabetes mellitus complication status: without complication Time Spent (min) 30
[2023-12-26 08:49] VITALS: BMI 26.6
[2023-12-26 13:04] VITALS: BMI 26.6
== END 2023-12-26 09:24 | disposition home or self-care (01) ==
PROVIDERS: PCP Internal Medicine; Visit Provider Dietitian, Registered
DX: E11.9 Type 2 diabetes mellitus without complications (principal)

== ENCOUNTER → 2023-12-26 08:33 | Outpatient (BNVA) | payer OTHER, SELFPAY | PROVIDERS: PCP Internal Medicine; Visit Provider Dietitian, Registered | DX: E11.9 Type 2 diabetes mellitus without complications (principal); Z71.3 Dietary counseling and surveillance | CPT/HCPCS: 97802 ==

== ENCOUNTER 2024-01-09 08:08 | Outpatient (REF) | payer OTHER, SELFPAY | END 2024-01-09 08:09 | disposition home or self-care (01) | LOC: HO.US 08:08 | PROVIDERS: PCP Internal Medicine; Visit Provider Nurse Practitioner Family | DX: N20.0 Calculus of kidney (principal) | CPT/HCPCS: 76775 ==

== ENCOUNTER 2024-01-15 11:43 | Outpatient (AMB) | payer OTHER, SELFPAY ==
--- NOTE | 2024-01-15 11:44 | A.OFFVIS_ITS ---
Intake Visit Reasons: 3m/US(pending 01/09/24) Intake Note: Patient presents today for follow up on: Nephrolihiasis and ultrasound results Imaging Completed: 01/09/24 Urology Medications: none Blood Thinner: none Retoucher Required: No Accompanied by: Self / Same As Patient Allergies oxycodone Allergy (Verified 01/15/24 14:16) Anaphylaxis Medication List - Last Reconciled 01/15/24 by NIA Garcia acetaminophen (Tylenol) 325 mg PO QID PRN blood sugar diagnostic (OneTouch Verio test strips) check blood sugars once daily blood sugar diagnostic (FreeStyle Lite Strips) As directed test 3 times day blood-glucose meter (OneTouch Verio Flex Meter) check blood sugars once daily blood-glucose meter (FreeStyle Lite Meter kit) As directed cyanocobalamin (vitamin B-12) 1,000 mcg PO DAILY lancets (FreeStyle Lancets) As directed metformin 500 mg PO DAILY nortriptyline 10 mg PO BEDTIME HPI Comments Details: Marcie is a very pleasant 38-year-old female patient who was accompanied by her son at today's office visit. She has a past medical history of diabetes. She presents to the office today for follow-up of her nephrolithiasis. In discussion with the patient today she reports to be doing and feeling well. She reports having followed up with Nephrology, endocrinology and her PCP since her last office visit here. She discusses recently starting a diabetic diet however finds it difficult to also manage her diabetic diet with a diet for her history of nephrolithiasis. Patient has a history of 4 mm left UVJ however was able to independently past the stone without surgical intervention. Recent renal imaging results reviewed with the patient today.... She currently denies any bothersome urinary issues or concerns. In office urinalysis results reviewed with the patient today. We discussed at length potential causes of nephrolithiasis. She otherwise offers no other issues or concerns at this time. [facility] Medical History Hyperparathyroidism Review of Systems Const All systems reviewed & are unremarkable except as noted in HPI and below Physical Exam Const General: cooperative, healthy appearing, comfortable, no acute distress, well developed, alert and awake Orientation/consciousness: patient oriented x3 Limitations: no limitations HEENT Head: Yes normal to inspection, Yes normocephalic and Yes atraumatic Ears: hearing grossly normal bilaterally Eyes General: appearance normal, both eyes and all related structures Neck Neck: Yes normal visual inspection and Yes trachea midline Chest Chest palpation & inspection: normal inspection of the chest Resp Effort & Inspection: normal respiratory effort and able to speak in complete sentences Cardio Rate: regular rate GI Inspection: Yes normal to inspection General: Yes no CVA tenderness Back/Spine/Pelvis Back: no CVA tenderness Skin General skin exam: no rashes or lesions noted Neuro General: patient oriented x3 Extrem General: Yes normal to inspection Psych Appearance: grossly normal and well kempt Mental Status: mental status grossly normal Speech and movement: Normal speech and movement present and Clear speech present Affect: normal affect Attitude: cooperative Thought process: Normal thought process present Thought content: Normal thought content present Insight: Fair insight present (Psych) Judgement: Fair judgement present (Psych) Results AMB Urinalysis, Automated UA Leukoctes 0 Kj/uL Last Edit by [employer] Marilyn on 01/15/24 12:15 UA Nitrite Last Edit by [employer] Marilyn on 01/15/24 12:15 UA Urobilinogen 0.2 mg/dL Last Edit by [employer] Sanders on 01/15/24 12:15 UA Protein 15 mg/dL Last Edit by [employer] SamanthaSonocine on 01/15/24 12:15 UA pH 7.0 Last Edit by [employer] Sanders on 01/15/24 12:15 UA Blood 0 Juan Pablo/uL Last Edit by [employer] Sanders on 01/15/24 12:15 UA Specific [place] 1.015 Last Edit by [employer] on 01/15/24 12:15 UA Ketone Negative Last Edit by [employer] Sanders on 01/15/24 12:15 UA Bilirubin 0 mg/dL Last Edit by [employer] Marilyn on 01/15/24 12:15 UA Glucose 0 mg/dL Last Edit by Jesus Sanders on 01/15/24 12:15 Results Reviewed Results Reviewed: Laboratory Last Values Urine pH (Auto) 7.0 01/15/24 12:14 Specific [place] (Auto) 1.015 01/15/24 12:14 Urine Protein (Auto) 15 mg/dL 01/15/24 12:14 Glucose (UA)(Auto) 0 mg/dL 01/15/24 12:14 Urine Ketones (Auto) Negative 01/15/24 12:14 Urine Blood (Auto) 0 Juan Pablo/uL 01/15/24 12:14 Urine Bilirubin (Auto) 0 mg/dL 01/15/24 12:14 Urine Urobilinogen (Auto) 0.2 mg/dL 01/15/24 12:14 Leukocyte Esterase (Auto) 0 Kj/uL 01/15/24 12:14 Assessment & Plan Assessment & Plan (1) Calculus of kidney: Code(s): N20.0 - Calculus of kidney Category: Medical Plan In office urinalysis results reviewed with the patient today; as noted above. Continue to follow-up with nephrology as planned. Recent renal imaging results reviewed with the patient today; as noted above. Discussed at length potential causes of nephrolithiasis. Patient currently denies any bothersome urinary issues or concerns. She reports be happy with current voiding parameters. Will continue with surveillance monitoring. Discussed, educated, and stressed the importance of adequate hydration relation to nephrolithiasis as well as overall health and well-being. Continue adding 1 oz of lemon juice to water daily. Will obtain renal ultrasound in 6 months. Follow-up in 6 months with imaging to be completed prior; or sooner with any issues, concerns, and or questions. Orders: Orders AMB Urinalysis Automated Today Z13.9 - Encounter for screening, unspecified US renal BI 6 Months N20.0 - Calculus of kidney Patient Instructions: The patient had an opportunity to ask questions regarding the treatment plan. All questions were answered. Physical exam, labs, and imaging were discussed and reviewed in detail. As well as risks, benefits, and discussion of treatment quintana bryan. No major barriers to understanding were identified. The patient expressed understanding and agreement with the above treatment plan. The patient was made aware they should contact our office by phone for worsening of their current condition, the appearance of new symptoms, or with any questions or concerns. Compliance is encouraged with any medications and follow up testing that is ordered. It is a privilege to be allowed the opportunity to participate in? your urological care.? Again, if you have any questions or concerns If you have any questions or concerns please do not hesitate to contact me. The office is [phone]. This note is constructed using voice recognition software. While every effort has been made to ensure accuracy special education tutor errors may have been included. Yours sincerely, NIA Garcia Coding Level of Care Code Est Pt Level 3 (09819) Diagnoses Calculus of kidney N20.0
== END 2024-01-15 12:25 | disposition home or self-care (01) ==
PROVIDERS: Visit Provider Nurse Practitioner Family
DX: Z13.9 Encounter for screening, unspecified (principal)

== ENCOUNTER → 2024-01-15 11:43 | Outpatient (BNVA) | payer OTHER, SELFPAY | PROVIDERS: Visit Provider Nurse Practitioner Family | DX: N20.0 Calculus of kidney (principal); E11.9 Type 2 diabetes mellitus without complications | CPT/HCPCS: 81003 ==

== ENCOUNTER 2024-01-27 08:31 | Outpatient (REF) | payer OTHER, SELFPAY ==
[2024-01-27 09:17] LABS: Creatinine, mg/dL 35.07; Creatinine, mg/dL 35.43
[2024-01-27 13:31] LABS: Creatinine, 24Hr Urine 1.1 G/Day (1.0-2.0); Total Volume 24 Hour Urine 3025 mL
[2024-01-27 13:32] LABS: Creatinine, 24Hr Urine 1.1 G/Day (1.0-2.0); Total Volume 24 Hour Urine 3025 mL
[2024-02-01 01:14] LABS: 24hr Urine Total Volume 3025 mL; Oxalic Acid 24 Urine 68.2 mg/24 h (3.6-38.0)
== END 2024-01-27 08:32 | disposition home or self-care (01) ==
LOC: HO.LNP 08:31
PROVIDERS: Visit Provider Internal Medicine Hypertension Specialist
DX: E21.3 Hyperparathyroidism, unspecified (principal)
CPT/HCPCS: 82570; 83945; 84300

== ENCOUNTER 2024-02-02 08:43 | Outpatient (AMB) | payer OTHER, SELFPAY ==
[2024-02-02 08:45] VITALS: BP 120/82; PULSE 97; BMI 26.5
--- NOTE | 2024-02-02 08:45 | A.OFFVIS_ITS ---
Vital Signs 02/02/24 08:45 Height 5 ft 9 in Weight 179 lb 10.828 oz BMI 26.5 BP 120/82 Blood Pressure Location Lt brachial Position Sitting Pulse 97 Pulse Source Pulse Oximeter Intake Visit Reasons: T2DM Intake Note: Patient present today for Type 2 Diabetes Mellitus. Last Diabetic eye exam: 2021 Last Podiatry Visit: Doesn't have one Random Glucose: 129 mg/dl HgA1C: 6.3% Research Methods Instructor Required: No Accompanied by: Child Allergies oxycodone Allergy (Verified 02/02/24 08:51) Anaphylaxis HPI Comments Details: 37-year-old female coming in today for follow up of type 2 diabetes mellitus. Also noted have hyperparathyroidism. Type 2 diabetes mellitus Diagnosed July 2023 Was in the ER for kidney stone followed by PCP visit when blood work was done A1c she thinks was 9.8% or 8.9%, she isnt sure of the two Prior therapy: No other therapies Current regimen:Metformin 500 mg daily reports some constipatuion no diarrhea Increased urination has improved, increased thirst has improved. also feels some times she gets tachycardiac, sweaty,doesnt have a meter to check SMBG's Didnt bring in meter today From recall Fasting usually not checking 2 hrs post meal 110 to 140 Fasting today 129 mg/dl Complications Eye exam: Last eye exam was 2 years ago, has appt April 2024 Neuropathy: no symptoms Kidney disease: normal kidney function , EGFR >September Macrovascular complications: No history of macrovascular complications. Last Podiatry Visit: Doesn't have one Random Glucose: fasting today 129 mg/dl HgA1c: 6.3% 11/03/23 Statin: CECILIA/ARB: none Exercise:started walking 15 to 20 mins daily Diet control: breakfast: eggs Lunch : protein with vegetebale Dinner : protein with vegetable quinoa He has never had any hospitalizations for hyperglycemia/hypoglycemia. Family history : sister, paternal aunts , grandmother have DM Family is in [place] mostly Sister of kidnney failure Hyperparathyroidism Was recently diagnosed with nephrolithiasis, CT abdomen from August 2023 shows left renal calculi. She pass this spontaneously. Following with Nephrology and Urology. PTH noted to be elevated at 85 from October 2023 Normal calcium levels No vitamin-D levels in the chart, patient is not on any calcium or vitamin-D supplements Denies any history of fractures/osteoporosis No family history of calcium problems or kidney stones Review of systems Constitutional: no fevers, chills HEENT:reports blurry vision Cardiac: No chest pain, discomfort or palpitations. Pulmonary: No SOB GI:has abdominal pain intermittenlyu Physical exam General: sitting comfortably in no acute distress HEENT: normocephalic/atraumatic, moist oral mucosa Neck: supple Cardiac: normal heart sounds Pulm: normal breath sounds B/L, no added breath sounds Abd: not distended, no tenderness Extremities: no edema, no signs of myxedema Neuro: AAO x3, Speech: normal, no facial droop, moving all 4 extremities Laboratory Tests 10/16/21 08/20/23 08/20/23 14:32 10:02 10:03 Plt Count 218 Creatinine 0.94 0.84 Estimated GFR > 60 > 60 Random Glucose 180 H 241 H Estimat Average Glucose Hemoglobin A1c % C-Peptide Calcium 9.9 9.4 Magnesium 1.8 1.9 Phosphorus Albumin 5.1 H 4.5 Cholesterol LDL Cholesterol, Calc HDL Cholesterol Vitamin B12 25-OH Vitamin D Total PTH Intact Ur 24 Hour Volume Ur Creatinine mg/dL Ur Creatinine 24 Hour Urine Creatinine Urine Microalbumin Microalb/Creat Ratio Ur Sodium 24 Hour Ur Calcium 24 Hr Calcium/Creat 24 Hr Ur Citric Acid 24 Hour Ur Oxalic Acid 24 Hr Islet Cell Ab Screen GREGG Antibody 11/03/23 11/11/23 12/05/23 15:54 06:00 09:08 Plt Count Creatinine 0.88 Estimated GFR > 60 Random Glucose 90 Estimat Average Glucose 134 Hemoglobin A1c % 6.3 H C-Peptide Calcium 10.0 D Magnesium Phosphorus Albumin Cholesterol LDL Cholesterol, Calc HDL Cholesterol Vitamin B12 25-OH Vitamin D Total PTH Intact 85.9 H Ur 24 Hour Volume 1525 Ur Creatinine mg/dL 93.37 Ur Creatinine 24 Hour 1.4 Urine Creatinine 1.46 Urine Microalbumin 40.0 Microalb/Creat Ratio 23.5 Ur Sodium 24 Hour 83.9 Ur Calcium 24 Hr 140 Calcium/Creat 24 Hr 93 Ur Citric Acid 24 Hour 1206 Ur Oxalic Acid 24 Hr 51.1 H Islet Cell Ab Screen GREGG Antibody 12/05/23 01/27/24 09:14 07:00 Plt Count Creatinine 0.80 Estimated GFR > 60 Random Glucose 120 H Estimat Average Glucose Hemoglobin A1c % C-Peptide 2.67 Calcium 9.6 Magnesium Phosphorus 2.8 Albumin 4.8 Cholesterol 206 H LDL Cholesterol, Calc 137 H HDL Cholesterol 52 Vitamin B12 1022 H 25-OH Vitamin D Total 32.1 PTH Intact 85.6 H Ur 24 Hour Volume 3025 Ur Creatinine mg/dL 35.07 Ur Creatinine 24 Hour 1.1 Urine Creatinine Urine Microalbumin Microalb/Creat Ratio Ur Sodium 24 Hour 124.0 Ur Calcium 24 Hr Calcium/Creat 24 Hr Ur Citric Acid 24 Hour Ur Oxalic Acid 24 Hr 68.2 H Islet Cell Ab Screen NEGATIVE GREGG Antibody <5 PFSH Medical History Hyperparathyroidism Physical Exam Vital Signs: Last Vital Signs Pulse 97 02/02/24 08:45 BP 120/82 02/02/24 08:45 BMI result Body Mass Index 26.5 Results AMB Hemoglobin A1c AMB Hemoglobin A1c 6.3 % Last Edit by LALI Millan on 02/02/24 09:04 Results Reviewed Results Reviewed: Laboratory Last Values Glucose (Clinic) 129 mg/dL (60-115) H 02/02/24 08:53 Assessment & Plan Assessment & Plan (1) Diabetes mellitus: Code(s): E11.9 - Type 2 diabetes mellitus without complications Category: Medical Qualifiers: Diabetes mellitus type: type 2 Diabetes mellitus correction insulin use: without superintendent container terminal use Diabetes mellitus complication status: without complication Qualified Code(s): E11.9 - Type 2 diabetes mellitus without complications Plan: Patient with new onset of type 2 diabetes mellitus diagnosed in September 2023 with a A1c of 8.9 or 9.8% per patient. Started on metformin 500 mg daily. Most recent A1c today 02/02/24 down to 6.3 % with intensive lifestyle modification and metformin. B:?Blood pressure is under [] control, for renal protection in the setting of diabetes. C:?LDL elevated at 137 mg/dL. Goal is less than 90. Counseled patient extensively about lifestyle modification with the avoiding fats and increasing exercise, ASCVD score not standardized that she is still less than 40 years of age, we will re-evaluate lipids at six-month follow up. D:?Diet control and healthy lifestyle was discussed in detail. Emphasis was made on exercise and physical activity in daily routine with at least 30-45 minutes of aerobic exercise 5-6 days a week. E: Last visit with production line mechanic was 2 yrs ago. No diabetic retinopathy. Advised to see eye doctor, patient states she already has an eye doctor, does not need a referral. She has a appointment in April 2024. F: Foot care is good, advised about foot examination every day foot exam done last visit G: eGFR >60 Oct 06 and microalbumin/Cr ratio done November 2023 with a normal range. Plan: -continue metformin 500 mg daily, patient is able to tolerate it if not able to tolerate can change to XR formulation -A1c already at goal <7 %, I have asked her to get her A1c repeated at PCPs office in 3 months if elevated they can increase the metformin to 1 g daily. -encouraged to continue lifestyle modification -ordered lipid panel, urine microalbumin, BMP to be repeated in 6 months -follow up with stencil maker -see Ophthalmology for annual diabetic exam -follow up in 6 months with repeat A1c (2) Hyperparathyroidism: Code(s): E21.3 - Hyperparathyroidism, unspecified Category: Medical Plan: Patient noted to have elevated PTH of 85 from October 2023. No history of kidney disease. Had her 1st episode of kidney stone recently in July 2023. 24 hour urine levels showed elevated oxalate levels since she has seen Nephrology and advised low oxalate diet. I reiterated this to her. She is not on any vitamin-D supplements, vitamin-D level around lower end of normal at 31. Normal calcium levels. No symptoms of hypercalcemia. I have asked her to start taking 1155-6504 units of vitamin-D daily. At this point given normal 24 hour urine calcium levels, this is consistent with either mild secondary hyperparathyroidism in the setting of vitamin-D deficiency or normocalcemic hyperparathyrodiism. We will repeat labs in 6 months once she has been on the vitamin-D for 6 months. Plan:-ordered labs for 6 months -follow up in 6 months Plan I spent 30 minutes in reviewing the record, seeing the patient and documenting in the medical record. Orders: Orders Lipid Panel 6 Months E11.9 - Type 2 diabetes mellitus without complications, E21.3 - Hyperparathyroidism, unspecified Hemoglobin A1c 6 Months E11.9 - Type 2 diabetes mellitus without complications, E21.3 - Hyperparathyroidism, unspecified Basic Metabolic Panel 6 Months E11.9 - Type 2 diabetes mellitus without complications, E21.3 - Hyperparathyroidism, unspecified Calcium 6 Months E11.9 - Type 2 diabetes mellitus without complications, E21.3 - Hyperparathyroidism, unspecified Vitamin D 25-OH Total 6 Months E11.9 - Type 2 diabetes mellitus without complications, E21.3 - Hyperparathyroidism, unspecified Microalbumin, Random (w Creat) 6 Months E11.9 - Type 2 diabetes mellitus without complications, E21.3 - Hyperparathyroidism, unspecified Albumin Level 6 Months E11.9 - Type 2 diabetes mellitus without complications, E21.3 - Hyperparathyroidism, unspecified Calcium, Ionized 6 Months E11.9 - Type 2 diabetes mellitus without complications, E21.3 - Hyperparathyroidism, unspecified Parathyroid Hormone Intact 6 Months E11.9 - Type 2 diabetes mellitus without complications, E21.3 - Hyperparathyroidism, unspecified Phosphorus 6 Months E11.9 - Type 2 diabetes mellitus without complications, E21.3 - Hyperparathyroidism, unspecified AMB Hemoglobin A1c Today E11.9 - Type 2 diabetes mellitus without complications, Z13.9 - Encounter for screening, unspecified Patient Instructions: Continue metformin 500 mg daily Have your primary care check A1c in 3 months If greater than7 % , thye can add another metformin start vitamin D 1000 to 2000 units daily Do labs blood and urine fasting before your 6 month appointment for me Coding Level of Care Code Est Pt Level 4 (54506) Diagnoses Type 2 diabetes mellitus without complication, without long-term current use of insulin E11.9 Diabetes mellitus type: type 2 Diabetes mellitus correction insulin use: without superintendent container terminal use Diabetes mellitus complication status: without complication Hyperparathyroidism E21.3 Time Spent (min) 30
[2024-02-02 08:58] LABS: Glucose, Whole Blood 129 mg/dL (60-115)
== END 2024-02-02 09:10 | disposition home or self-care (01) ==
PROVIDERS: PCP Internal Medicine; Visit Provider Student in an Organized Health Care Education/Training Program
DX: Z13.9 Encounter for screening, unspecified (principal); E11.9 Type 2 diabetes mellitus without complications; E21.3 Hyperparathyroidism, unspecified
CPT/HCPCS: 99214

== ENCOUNTER → 2024-02-02 08:43 | Outpatient (BNVA) | payer OTHER, SELFPAY | PROVIDERS: PCP Internal Medicine; Visit Provider Student in an Organized Health Care Education/Training Program | DX: E11.9 Type 2 diabetes mellitus without complications (principal); E21.3 Hyperparathyroidism, unspecified | CPT/HCPCS: 82947; 83036 ==

== ENCOUNTER 2024-06-14 15:44 | Outpatient (REF) | payer OTHER, SELFPAY ==
--- OUTSIDE RECORDS SUMMARY | 2024-06-14 15:50 | XMS_ITS | Clinical Summary ---
Author Organization [facility] Address [address] [place] [address] Care Team Providers Care Warp Dresser Name Role Phone Unknown Primary Care Provider [phone] Allergies No known active allergies Medications No known medications Active Problems No known active problems Social History Tobacco Use Types Packs/Day Years Used Date Smoking Tobacco: Never Assessed Comments Unknown Sex and Gender Information Value Date Recorded Sex Assigned at Not on file Legal Sex Female 12:50 PM EDT Gender Identity Not on file Sexual Orientation Not on file Plan of Treatment Health Maintenance Due Date Last Done Comments Hepatitis C Virus Screening 1984 HIV Screening 1997 DTaP/Tdap/Td Vaccines (1 - Tdap) 11/19/2003 Hepatitis B Vaccines (1 of 3 - 19+ 3-dose series) 11/19/2003 Pap Smear (Ages 21-65) 2005 Influenza Vaccine 09/14/2023 COVID-19 Vaccine ( - 2023-2 5 season) 2023 HPV Vaccines Aged Out No longer eligi ble based on patient's age to complete this topic Pneumococcal Vaccine: Pediat felicita (0-5 Years) and At-Risk Patients (6 to 49 Years) Aged Out No longer eligible b ased on patient's age to [place] [id number] [facility] Care Teams Warp Dresser Relationship Specialty Start Date End Date Unknown Unknow Provider Address PCP - General 05/17/19
--- OUTSIDE RECORDS SUMMARY | 2024-06-14 15:50 | XMS_ITS ---
Author Name [facility] Organization Unknown Encounters Encounter Type Encounter Reason Primary Diagnosis Location Date Ambulatory Other Chief Complaint Encounter for examination of blood pressure with abnormal findings [facility] 06/12/2024 Care Team Organization Name Specialty Phone Email Start Date End Da te [facility] NO PCP Primary Care 06/12
--- OUTSIDE RECORDS SUMMARY | 2024-06-14 15:50 | XMS_ITS | Clinical Summary ---
Author Organization [facility] Address [id number] [place] [id number] Care Team Providers Care Oil Spraying Machine Operator Name Role Phone Brenda Bo MD Primary Care Provider [phone] Surgical History Surgery Date Site/Laterality Comments UPPER GASTROINTESTINAL ENDOSCOPY PROCEDURE: [place] UPPER GI ENDOSCOPY PERFORMED Medical History Medical History Date Comments Allergic rhinitis 08/29/2018 DX:Allergic rh initis Sickle cell trait (CMS/HCC V24) 08/29/2018 DX:Sickle cell trait (HCC) Headache disorder 08/29/2018 DX:Headache di sorder Esophageal reflux 08/24/2018 DX:Esophageal reflux Family History Medical History Relation Name Comments Asthma Brother No Known Problems Father No Known Problems Mother Relation Name Status Comments Brother Father Alive Mother Alive Social History Tobacco Use Types Packs/Day Years Used Date Smoking Tobacco: Never Alcohol Use Standard Drinks/Week Comments Yes 0 (1 standard drink = 0.6 oz pur e alcohol) Comments Unknown Sex and Gender Information Value Date Recorded Sex Assigned at Not on file Legal Sex Female 10:11 AM EST Gender Identity Not on file Sexual Orientation Not on file Obstetrics History Plan of Treatment Health Maintenance Due Date Last Done Comments Cervical Cancer Screening: P ap Smear 2005 DTaP,Tdap,and Td Vaccines (3 - Td or Tdap) 07/18/2021 07/19/2011, 04/12/2007 COVID-19 Vaccine (2023-2 5 season) 2023 Influenza Vaccine (Season Ended) 2024 MMR Vaccines Completed 03/08/2007, 07/28/1994 Hepatitis B Vaccines Completed 12/07/2007, 04/12/2007, 03/08/2007 Varicella Vaccines Aged Out 10/18/2011, 08/15/2011 No longer eligible based on patient's age to complete this topic HIB Vaccines Aged Out No longer eligi ble based on patient's age to complete this topic HPV Vaccines Aged Out No longer eligi ble based on patient's age to complete this topic Hepatitis A Vaccines Aged Out No long er eligible based on patient's age to complete this topic IPV Vaccines Aged Out No longer eligi ble based on patient's age to complete this topic Meningococcal ACWY Vaccine Aged Out N o longer eligible based on patient's age to complete this topic Meningococcal B Vaccine Aged Out No l onger eligible based on patient's age to complete this topic Pneumococcal Vaccine: Pediatrics (0 to 5 Years) and At-Risk Patients (6 to 64 Years) Aged Out No longer eligible b ased on patient's age to complete this topic RSV Immunization Patients Under 20 months Aged Out No longer eligible b ased on patient's age to complete this topic Care Teams Oil Spraying Machine Operator Relationship Specialty Start Date End Date Brenda Bo MD [address] [place] [address] PCP - General Internal Medicine 10/05/18
[2024-06-14 16:25] LABS: Appearance Urine Clear; Color Urine Yellow; Glucose Urine UA Negative (Negative); Leukocyte Esterase Urine Negative (Negative); Nitrite Urine Negative (Negative); Specific Gravity - Urine 1.015 (1.005-1.025); Urine Blood Negative (Negative); Urine Ketones Negative (Negative); Urine Protein Negative (Neg-Trace)
[2024-06-14 16:48] LABS: Anion Gap 11 (12-20); Blood Urea Nitrogen 17 mg/dL (9-16); Calcium 9.6 mg/dL (8.4-10.2); Carbon Dioxide 27 mmol/L (22-29); Chloride 107 mmol/L (96-108); Estimated Glomerular Filt Rate > 60; Glucose Random 103 mg/dL (60-115); Potassium 4.3 mmol/L (3.3-5.1); Sodium 141 mmol/L (135-145); Uric Acid 4.9 mg/dL (2.4-5.7)
[2024-06-14 16:54] LABS: Parathyroid Hormone Intact 47.1 pg/mL (8.7-77.1)
== END 2024-06-14 15:45 | disposition home or self-care (01) ==
LOC: HO.LAB 15:44
PROVIDERS: PCP Internal Medicine; Visit Provider Internal Medicine Hypertension Specialist
DX: E21.3 Hyperparathyroidism, unspecified (principal); N13.2 Hydronephrosis with renal and ureteral calculous obstruction
CPT/HCPCS: 36415; 80048; 81003; 83970; 84100; 84550

== ENCOUNTER 2024-06-17 10:47 | Outpatient (AMB) | payer OTHER, SELFPAY ==
[2024-06-17 10:54] VITALS: BP 115/60; PULSE 94; O2SAT 97; BMI 26.1
--- NOTE | 2024-06-17 10:54 | HO.NEPHOV ---
Vital Signs 06/17/24 10:54 Height 5 ft 9 in Weight 177 lb BMI 26.1 BP 115/60 Blood Pressure Location Lt brachial Position Sitting Pulse 94 Pulse Source Pulse Oximeter Pulse Oximetry (%) 97 Oxygen Delivery Method Room Air Intake Visit Reasons: 6mon follow up Certifed Refrigeration Operator Required: No Accompanied by: Self / Same As Patient Allergies oxycodone Allergy (Verified 06/17/24 10:57) Anaphylaxis Medication List - Last Reconciled 06/17/24 by Wally Mchugh MD acetaminophen (Tylenol) 325 mg PO QID PRN blood sugar diagnostic (OneTouch Verio test strips) check blood sugars once daily blood sugar diagnostic (FreeStyle Lite Strips) As directed test 3 times day blood-glucose meter (OneTouch Verio Flex Meter) check blood sugars once daily blood-glucose meter (FreeStyle Lite Meter kit) As directed cyanocobalamin (vitamin B-12) 1,000 mcg PO DAILY lancets (FreeStyle Lancets) As directed metformin 500 mg PO DAILY nortriptyline 10 mg PO BEDTIME Do you need a note to return to daycare/school/sports/work: No HPI Comments Details: Pleasant 37-year-old man with a history of renal stone he is here for renal evaluation. Back in 09/02/2023 she had left-sided ureteral stone with hydronephrosis. She has past stone spontaneously. No follow up imaging has been done yet. She is worried about her overall kidney function. She has no history of prior kidney stones. She has a history of elevated blood sugar. History of -induced hypertension which resolved. 12/25/2023. Recently hospitalized with numbness. Stroke was ruled out she was diagnosed with migraine. Nortriptyline has been started 06/17/2024. [facility] is here for semiannual follow-up. No specific complaints today. Twenty-four urine collection in January showed hyperoxaluria of 68. No further kidney stones. We reviewed her [facility] Medical History Hyperparathyroidism Physical Exam Vital Signs: Last Vital Signs Pulse 94 06/17/24 10:54 BP 115/60 06/17/24 10:54 Pulse Ox 97 06/17/24 10:54 Oxygen Delivery Method Room Air 06/17/24 10:54 BMI result Body Mass Index 26.1 Comfortable Neck supple no JVD. Lungs entry equal no rales. Heart S1-S2 heard no gallop or rub. Abdomen soft nontender. Neuro alert awake oriented. No asterixis. Extremities no edema. Const General: comfortable; No acute distress Orientation/consciousness: patient oriented x3 Eyes General: appearance normal, both eyes and all related structures Visual Staton: normal visual staton by confrontation Neck Neck: Yes supple and Yes no JVD Resp Effort & Inspection: normal respiratory effort and respiratory effort not decreased Cardio Palpation: no palpable S3 and no palpable S4 Heart sounds: no rubs GI Inspection: Yes normal to inspection Palpation (GI): Soft to palpation Percussion: Yes normal to percussion Auscultation: normal bowel sounds General: Yes no CVA tenderness Back/Spine/Pelvis Back: no CVA tenderness Skin General skin exam: no petechiae and no purpura Neuro General: patient oriented x3 and no focal motor deficits Extrem General: No clubbing and No edema Results Reviewed Nephrology Results: Sodium 141 mmol/L (135-145) 06/14/24 Potassium 4.3 mmol/L (3.3-5.1) 06/14/24 Chloride 107 mmol/L (96-108) 06/14/24 Carbon Dioxide 27 mmol/L (22-29) 06/14/24 BUN 17 mg/dL (9-16) H 06/14/24 Creatinine 0.67 mg/dL (0.5-1.4) 06/14/24 Calcium 9.6 mg/dL (8.4-10.2) 06/14/24 Phosphorus 3.0 mg/dL (2.7-4.5) 06/14/24 PTH Intact 47.1 pg/mL (8.7-77.1) 06/14/24 Urine Protein Negative mg/dL (Neg-Trace) 06/14/24 Renal US 01/09/24 Assessment & Plan Assessment & Plan (1) Hyperparathyroidism: Code(s): E21.3 - Hyperparathyroidism, unspecified Category: Medical (2) Hydronephrosis concurrent with and due to calculi of kidney and ureter: Code(s): N13.2 - Hydronephrosis with renal and ureteral calculous obstruction Category: Medical (3) Diabetes mellitus: Code(s): E11.9 - Type 2 diabetes mellitus without complications Category: Medical Qualifiers: Diabetes mellitus complication status: without complication Diabetes mellitus director of graduate medical education insulin use: without mcfp use Diabetes mellitus type: type 2 Qualified Code(s): E11.9 - Type 2 diabetes mellitus without complications Plan Pleasant middle-aged woman with a history of nephrolithiasis. She had left-sided hydronephrosis. She was spontaneously passed the stone. Follow up renal ultrasonogram did not reveal any hydronephrosis. There was a nonobstructing stone on the left midpole measuring 0.5 cm. Continue with Urology follow-up. 24 urine collection collection showed a volume of 1525 mL. Urine sodium excretion and calcium excretion were acceptable. Oxalate excretion was elevated 51. Repeat collection revealed oxalate excretion of 68 Encouraged to increase fluid intake to maintain urine output of 2 L Continue low-sodium diet. She should Cut back on oxalate intake. She has been eating plenty of peanuts along with Spinach We discussed low oxalate diet. Mild secondary hyperparathyroidism. Serum calcium is normal. Intact PTH was 86. Repeat his 46 She follows with the endocrinology Overall renal function is stable. Orders: Orders UA and rflx microscopic 6 Months E21.3 - Hyperparathyroidism, unspecified Basic Metabolic Panel 6 Months E21.3 - Hyperparathyroidism, unspecified Coding Level of Care Code Est Pt Level 4 (90839) Diagnoses Hyperparathyroidism E21.3 Hydronephrosis concurrent with and due to calculi of kidney and ureter N13.2 Type 2 diabetes mellitus without complication, without long-term current use of insulin E11.9 Diabetes mellitus complication status: without complication Diabetes mellitus director of graduate medical education insulin use: without mcfp use Diabetes mellitus type: type 2
--- OUTSIDE RECORDS SUMMARY | 2024-06-17 12:18 | XMS_ITS | Clinical Summary ---
Author Organization [facility] Address [id number] [place] [id number] Care Team Providers Care Alarm Investigator Name Role Phone Brenda Bo MD Primary Care Provider [phone] Surgical History Surgery Date Site/Laterality Comments UPPER GASTROINTESTINAL ENDOSCOPY PROCEDURE: [place] UPPER GI ENDOSCOPY PERFORMED Medical History Medical [...] age to complete this topic Care Teams Alarm Investigator Relationship Specialty Start Date End Date Brenda Bo MD [address] [place] [address] PCP - General Internal Medicine 10/05/18
--- OUTSIDE RECORDS SUMMARY | 2024-06-17 12:18 | XMS_ITS | Clinical Summary ---
Author Organization [facility] Address [address] [place] [address] Care Team Providers Care Station Inspector Name Role Phone Unknown Primary Care Provider [phone] Allergies No known active allergies Medications No [...] series) 11/19/2003 Pap Smear (Ages 21-65) 2005 COVID-19 Vaccine (2023-2 5 season) 2023 Influenza Vaccine 09/13/2024 HPV Vaccines Aged Out No longer eligi ble based on patient's age to complete this topic Pneumococcal Vaccine: Pediat felicita (0-5 Years) and At-Risk Patients (6 to 49 Years) Aged Out No longer eligible b ased on patient's age to [place] [id number] [facility] Care Teams Station Inspector Relationship Specialty Start Date End Date Unknown Unknow Provider Address PCP - General 05/17/19
== END 2024-06-17 11:12 | disposition home or self-care (01) ==
LOC: HO.HKA 10:48
PROVIDERS: Visit Provider Internal Medicine Hypertension Specialist
DX: E21.3 Hyperparathyroidism, unspecified (principal); N13.2 Hydronephrosis with renal and ureteral calculous obstruction; E11.9 Type 2 diabetes mellitus without complications
CPT/HCPCS: 99214

== ENCOUNTER 2024-07-11 08:35 | Outpatient (REF) | payer OTHER, SELFPAY ==
--- NOTE | ~2024-07-11 | US_ITS ---
CLINICAL HISTORY: N20.0 - Calculus of kidney US Renal Comparison: None Findings: Right kidney normal size and echotexture, 11.2 cm length. Left kidney normal size and echotexture, 12.1 cm length. There are left renal parenchymal calculi. No collecting system dilatation of either kidney. Normal color Doppler. IMPRESSION: 1. Left renal parenchymal calculi. No acute findings. This document has been electronically signed by: Salas Larkin MD on 07/12/2024 09:07:44
--- OUTSIDE RECORDS SUMMARY | 2024-07-11 08:45 | XMS_ITS | Clinical Summary ---
Author Organization [facility] Address [address] [place] [address] Care Team Providers Care Asp Developer Name Role Phone Unknown Primary Care Provider [phone] Allergies No known active allergies Medications No [...] complete [place] [id number] [facility] Care Teams Asp Developer Relationship Specialty Start Date End Date Unknown Unknow Provider Address PCP - General 05/17/19
== END 2024-07-11 08:36 | disposition home or self-care (01) ==
LOC: HO.US 08:35
PROVIDERS: Visit Provider Nurse Practitioner Family
DX: N20.0 Calculus of kidney (principal)
CPT/HCPCS: 76775

== ENCOUNTER → 2024-07-11 08:36 | Outpatient (BNV) | payer OTHER, SELFPAY | PROVIDERS: Visit Provider Specialist | DX: N20.0 Calculus of kidney (principal) | CPT/HCPCS: 76775 ==

== ENCOUNTER 2024-08-02 09:04 | Outpatient (AMB) | payer OTHER, SELFPAY ==
--- NOTE | 2024-08-02 09:12 | MHC.OFFVIS ---
Vital Signs 08/02/24 09:22 Height 5 ft 9 in Weight 177 lb 7.554 oz BMI 26.2 BP 102/70 Blood Pressure Location Lt brachial Position Sitting Pulse 71 Pulse Source Pulse Oximeter Pulse Oximetry (%) 96 Oxygen Delivery Method Room Air Intake Visit Reasons: T2DM Intake Note: Patient present today for Type 2 Diabetes Mellitus Last Diabetic eye exam: 05/2024 Last Podiatry Visit: Doesn't have one Random Glucose: 125 mg/dl HgA1C: Due Material Handler Loader Required: No Accompanied by: Son Allergies oxycodone Allergy (Verified 08/02/24 09:26) Anaphylaxis Medication List - Last Reconciled 08/02/24 by Tasha Chapa MD acetaminophen (Tylenol) 325 mg PO QID PRN blood sugar diagnostic (OneTouch Verio test strips) check blood sugars once daily blood sugar diagnostic (FreeStyle Lite Strips) As directed test 3 times day blood-glucose meter (OneTouch Verio Flex Meter) check blood sugars once daily blood-glucose meter (FreeStyle Lite Meter kit) As directed cyanocobalamin (vitamin B-12) 1,000 mcg PO DAILY lancets (FreeStyle Lancets) As directed metformin 500 mg PO DAILY HPI Comments Details: 37-year-old female coming in today for follow up of type 2 diabetes mellitus. Also noted have hyperparathyroidism. Type 2 diabetes mellitus Diagnosed July 2023 Was in the ER for kidney stone followed by PCP visit when blood work was done A1c she thinks was 9.8% or 8.9%, she isnt sure of the two Prior therapy: No other therapies Current regimen:Metformin 500 mg daily reports some constipatuion no diarrhea Increased urination has improved, increased thirst has improved. also feels some times she gets tachycardiac, sweaty,doesnt have a meter to check SMBG's Has only 3 blood sugar readings in 75, 90 in the morning, 153 later in the day Fasting today 129 mg/dl Complications Eye exam: Last eye exam was 2 years ago, has appt April 2024 Neuropathy: no symptoms, Last Podiatry Visit: Doesn't have one Kidney disease: normal kidney function , EGFR >September Macrovascular complications: No history of macrovascular complications. HgA1c: 6.3% 11/03/23 A1c 6.4% POC 08/02/2024 Statin: CECILIA/ARB: none Exercise: Walking 30 minutes daily Diet control: breakfast: eggs Lunch : protein with vegetebale Dinner : protein with vegetable quinoa He has never had any hospitalizations for hyperglycemia/hypoglycemia. Family history : sister, paternal aunts , grandmother have DM Family is in [place] mostly Sister of kidnney failure Hyperparathyroidism Was recently diagnosed with nephrolithiasis, CT abdomen from August 2023 shows left renal calculi. She pass this spontaneously. Following with Nephrology and Urology. PTH noted to be elevated at 85 from October 2023 Normal calcium levels No vitamin-D levels in the chart, patient is not on any calcium or vitamin-D supplements Denies any history of fractures/osteoporosis No family history of calcium problems or kidney stones Interval history 06/14/2024: Labs repeated showed normal kidney function EGFR greater than 60, normal calcium of 9.6, phosphorus of 3, PTH 47.1 normalized. She did not do the vitamin-D level but she has been taking 1000 units daily. Physical exam General: sitting comfortably in no acute distress HEENT: normocephalic/atraumatic, moist oral mucosa Neck: supple Cardiac: normal heart sounds Pulm: normal breath sounds B/L, no added breath sounds Abd: not distended, no tenderness Extremities: no edema, no signs of myxedema Neuro: AAO x3, Speech: normal, no facial droop, moving all 4 extremities Laboratory Tests 10/16/21 08/20/23 08/20/23 14:32 10:02 10:03 Plt Count 218 Creatinine 0.94 0.84 Estimated GFR > 60 > 60 Random Glucose 180 H 241 H Estimat Average Glucose Hemoglobin A1c % C-Peptide Calcium 9.9 9.4 Magnesium 1.8 1.9 Phosphorus Albumin 5.1 H 4.5 Cholesterol LDL Cholesterol, Calc HDL Cholesterol Vitamin B12 25-OH Vitamin D Total PTH Intact Ur 24 Hour Volume Ur Creatinine mg/dL Ur Creatinine 24 Hour Urine Creatinine Urine Microalbumin Microalb/Creat Ratio Ur Sodium 24 Hour Ur Calcium 24 Hr Calcium/Creat 24 Hr Ur Citric Acid 24 Hour Ur Oxalic Acid 24 Hr Islet Cell Ab Screen GREGG Antibody 11/03/23 11/11/23 12/05/23 15:54 06:00 09:08 Plt Count Creatinine 0.88 Estimated GFR > 60 Random Glucose 90 Estimat Average Glucose 134 Hemoglobin A1c % 6.3 H C-Peptide Calcium 10.0 D Magnesium Phosphorus Albumin Cholesterol LDL Cholesterol, Calc HDL Cholesterol Vitamin B12 25-OH Vitamin D Total PTH Intact 85.9 H Ur 24 Hour Volume 1525 Ur Creatinine mg/dL 93.37 Ur Creatinine 24 Hour 1.4 Urine Creatinine 1.46 Urine Microalbumin 40.0 Microalb/Creat Ratio 23.5 Ur Sodium 24 Hour 83.9 Ur Calcium 24 Hr 140 Calcium/Creat 24 Hr 93 Ur Citric Acid 24 Hour 1206 Ur Oxalic Acid 24 Hr 51.1 H Islet Cell Ab Screen GREGG Antibody 12/05/23 01/27/24 09:14 07:00 Plt Count Creatinine 0.80 Estimated GFR > 60 Random Glucose 120 H Estimat Average Glucose Hemoglobin A1c % C-Peptide 2.67 Calcium 9.6 Magnesium Phosphorus 2.8 Albumin 4.8 Cholesterol 206 H LDL Cholesterol, Calc 137 H HDL Cholesterol 52 Vitamin B12 1022 H 25-OH Vitamin D Total 32.1 PTH Intact 85.6 H Ur 24 Hour Volume 3025 Ur Creatinine mg/dL 35.07 Ur Creatinine 24 Hour 1.1 Urine Creatinine Urine Microalbumin Microalb/Creat Ratio Ur Sodium 24 Hour 124.0 Ur Calcium 24 Hr Calcium/Creat 24 Hr Ur Citric Acid 24 Hour Ur Oxalic Acid 24 Hr 68.2 H Islet Cell Ab Screen NEGATIVE GREGG Antibody <5 Laboratory Tests 10/16/21 08/20/23 11/03/23 14:32 10:02 15:54 Sodium Potassium Creatinine 0.94 0.84 0.88 Estimated GFR > 60 > 60 > 60 Random Glucose 180 H 241 H 90 Estimat Average Glucose 134 Hemoglobin A1c % 6.3 H Calcium 9.9 9.4 10.0 D Magnesium 1.8 1.9 Phosphorus Albumin 5.1 H 4.5 PTH Intact 85.9 H 06/14/24 16:10 Sodium 141 Potassium 4.3 Creatinine 0.67 Estimated GFR > 60 Random Glucose Estimat Average Glucose Hemoglobin A1c % Calcium 9.6 Magnesium Phosphorus 3.0 Albumin PTH Intact 47.1 PFSH Medical History Hyperparathyroidism Assessment & Plan Assessment & Plan (1) Diabetes mellitus: Code(s): E11.9 - Type 2 diabetes mellitus without complications Category: Medical Qualifiers: Diabetes mellitus type: type 2 Diabetes mellitus half-way insulin use: without exterminator helper use Diabetes mellitus complication status: without complication Qualified Code(s): E11.9 - Type 2 diabetes mellitus without complications Plan: Patient with new onset of type 2 diabetes mellitus diagnosed in September 2023 with a A1c of 8.9 or 9.8% per patient. Started on metformin 500 mg daily. Most recent A1c today 08/02/2024 at 6.4% which is stable from 02/02/24 down to 6.3 % with intensive lifestyle modification and metformin. B:?Blood pressure is under [] control, for renal protection in the setting of diabetes. C:?LDL elevated at 137 mg/dL. Goal is less than 90. Counseled patient extensively about lifestyle modification with the avoiding fats and increasing exercise, ASCVD score not standardized that she is still less than 40 years of age, she did not do lipid levels prior to this visit. D:?Diet control and healthy lifestyle was discussed in detail. Emphasis was made on exercise and physical activity in daily routine with at least 30-45 minutes of aerobic exercise 5-6 days a week. E: Last visit with composite technician was April 2024. No diabetic retinopathy. F: Foot care is good, advised about foot examination every day foot exam done last visit G: eGFR >60 Oct 06 and microalbumin/Cr ratio done November 2023 with a normal range. She is due for repeat microalbumin levels, these are already ordered. At this point I discussed with the patient that she has well-controlled overall on metformin 500 mg. She does have a few elevated readings for her fasting, today was 125, I told her she can try increasing the metformin to 500 mg twice a day if she tolerates it well. At this point she does not need an traffic sign supervisor for diabetes care, she can follow up with her PCP who can manage her well-controlled diabetes. Plan: -increase metformin to 500 mg twice a day -encouraged to continue lifestyle modification -ordered lipid panel, urine microalbumin, BMP to be repeated -see Ophthalmology for annual diabetic exam -follow up with PCP from here onwards (2) Hyperparathyroidism: Code(s): E21.3 - Hyperparathyroidism, unspecified Category: Medical Plan: Patient noted to have elevated PTH of 85 from October 2023. No history of kidney disease. Had her 1st episode of kidney stone recently in July 2023. 24 hour urine levels showed elevated oxalate levels since she has seen Nephrology and advised low oxalate diet. I reiterated this to her. She is on vitamin D 1000 units daily, vitamin-D level around lower end of normal at 31 from prior labs. Normal calcium levels. No symptoms of hypercalcemia. Most recent blood work from May 2024 showed normal calcium levels, normal PTH levels. At this time PTH has normalized. Likely it was elevated in the setting of vitamin-D deficiency. I have asked her to repeat her vitamin-D levels but she does not need to follow up for this for now. Her primary care can check her calcium levels at least annually to make sure she is not developing hypercalcemia. Plan: -ordered vitamin-D levels -continue vitamin-D 1000 units daily -follow up with primary care with the annual calcium levels Plan I spent 30 minutes in reviewing the record, seeing the patient and documenting in the medical record. Orders: Orders AMB Hemoglobin A1c Today E11.9 - Type 2 diabetes mellitus without complications, Z13.9 - Encounter for screening, unspecified Medications: Changed From metformin 500 mg PO DAILY 90 tabs 3RF To metformin 500 mg PO BID 180 tabs 2RF Refilled metformin 500 mg PO BID 180 tabs 2RF Patient Instructions: Increase metformin to 500 mg twice daily Fasting sugars target 90 to 110 mg/dl 2 hours post emal target <140 mg /dl Do fasting blood work and urine test Your blood sugars are well controlled on metformin , your primary care can take over the care of your diabetes, if your blood sugars become uncontrolled you can be referred back to us Your parathyroid hormone has also normalized , you do not need to see me for this anymore, please have you primary care check your calcium level at least once a year Continue vitamin D 1000 units daily Coding Level of Care Code Est Pt Level 4 (91039) Diagnoses Type 2 diabetes mellitus without complication, without long-term current use of insulin E11.9 Diabetes mellitus type: type 2 Diabetes mellitus exterminator helper insulin use: without half-way use Diabetes mellitus complication status: without complication Hyperparathyroidism E21.3 Time Spent (min) 30
--- OUTSIDE RECORDS SUMMARY | 2024-08-02 09:17 | XMS_ITS | Clinical Summary ---
Author Organization [facility] Address [address] [place] [address] Care Team Providers Care Manager Cath Lab Name Role Phone Unknown Primary Care Provider [phone] Allergies No known active allergies Medications No [...] complete [place] [id number] [facility] Care Teams Manager Cath Lab Relationship Specialty Start Date End Date Unknown Unknow Provider Address PCP - General 05/17/19
[2024-08-02 09:22] VITALS: BP 102/70; PULSE 71; O2SAT 96; BMI 26.2
[2024-08-02 09:33] LABS: Glucose, Whole Blood 125 mg/dL (60-115)
== END 2024-08-02 09:44 | disposition home or self-care (01) ==
LOC: HO.ENCR 09:05
PROVIDERS: PCP Internal Medicine; Visit Provider Student in an Organized Health Care Education/Training Program
DX: E11.9 Type 2 diabetes mellitus without complications (principal); E21.3 Hyperparathyroidism, unspecified
CPT/HCPCS: 99214

== ENCOUNTER 2024-08-02 09:04 | Outpatient (REF) | payer OTHER, SELFPAY ==
[2024-08-02 10:49] LABS: Estimated Average Glucose 120 mg/dL; Hemoglobin A1c % 5.8 % (<6.0); Total Hemoglobin (HGBA1C) 3480.1538 umol/L
[2024-08-02 11:03] LABS: Albumin Level 4.8 g/dL (3.5-5.0); Anion Gap 10 (12-20); Blood Urea Nitrogen 11 mg/dL (9-16); Calcium 9.1 mg/dL (8.4-10.2); Carbon Dioxide 28 mmol/L (22-29); Chloride 104 mmol/L (96-108); Cholesterol 203 mg/dL (<200); Estimated Glomerular Filt Rate > 60; Glucose Random 114 mg/dL (60-115); HDL Cholesterol 43 mg/dL (>40); LDL Cholesterol Calculated 150 mg/dL (<100); Phosphorus 2.9 mg/dL (2.7-4.5); Potassium 3.8 mmol/L (3.3-5.1); Sodium 138 mmol/L (135-145); Triglycerides 51 mg/dL (<150); Vitamin D 25-OH Total 33.3 ng/mL (>30)
[2024-08-02 11:15] LABS: Vitamin B12 748 pg/mL (200-900)
[2024-08-02 11:18] LABS: Creatinine Urine 35.09 mg/dL; Microalbumin Urine < 5.0 mg/L
== END 2024-08-02 09:05 | disposition home or self-care (01) ==
LOC: HO.LAB 09:04
PROVIDERS: PCP Internal Medicine; Visit Provider Student in an Organized Health Care Education/Training Program
DX: E11.9 Type 2 diabetes mellitus without complications (principal); E21.3 Hyperparathyroidism, unspecified
CPT/HCPCS: 36415; 80048; 80061; 82040; 82043; 82306; 82330; 82570; 82607; 82947; 83036; 84100

== ENCOUNTER 2024-09-09 09:50 | Outpatient (AMB) | payer OTHER, SELFPAY ==
--- NOTE | 2024-09-09 09:52 | A.OFFVIS_ITS ---
Intake Visit Reasons: follow up/US(set) Intake Note: Patient is present for US F/U Urology Medication:NONE Antibiotic Allergy:NONE Blood Thinner: NONE Educational Technology Coordinator Required: No Allergies oxycodone Allergy (Verified 09/09/24 10:35) Anaphylaxis Medication List - Last Reconciled 09/09/24 by NIA Garcia acetaminophen (Tylenol) 325 mg PO QID PRN blood sugar diagnostic (OneTouch Verio test strips) check blood sugars once daily blood sugar diagnostic (FreeStyle Lite Strips) As directed test 3 times day blood-glucose meter (OneTouch Verio Flex Meter) check blood sugars once daily blood-glucose meter (FreeStyle Lite Meter kit) As directed lancets (FreeStyle Lancets) As directed metformin 500 mg PO BID HPI Comments Details: Marcie is a very pleasant 38-year-old female patient. She has a past medical history of diabetes. She presents to the office today for follow- up of her nephrolithiasis. In discussion with the patient today she reports to be doing and feeling well. Recent renal imaging results reviewed with the patient today. 07/07 bilateral kidneys are normal in size and echotexture. No collecting system dilatation of either kidney. There are left renal parenchymal calculi. No acute findings. Patient with a previous history of 4 mm left UVJ however was able to independently past the stone without surgical intervention. She currently denies any bothersome urinary issues or concerns. She denies urinary urgency, urinary frequency, incontinence, nocturia, hematuria, dysuria, foul smelling urine, changes to urinary stream, flank pain, fever, and or chills. She is happy with her current voiding parameters. In office urinalysis results reviewed with the patient today. She discusses having recently got her diabetes under control and has since been managing with her primary care doctor and has been discharged through endocrinology due to stable A1c levels. She continues to manage her diabetes with diet and exercise. She discusses walking at [employer] 3-5 times per week. She continues to follow-up with nephrology as planned. We discussed potential causes of nephrolithiasis. Will continue with surveillance monitoring. She otherwise offers no other issues or concerns at this time. [facility] Medical History Hyperparathyroidism Review of Systems Const All systems reviewed & are unremarkable except as noted in HPI and below Physical Exam Const General: cooperative, healthy appearing, comfortable, no acute distress, well developed, alert and awake Orientation/consciousness: patient oriented x3 Limitations: no limitations HEENT Head: Yes normal to inspection, Yes normocephalic and Yes atraumatic Ears: hearing grossly normal bilaterally Eyes General: appearance normal, both eyes and all related structures Neck Neck: Yes normal visual inspection and Yes trachea midline Chest Chest palpation & inspection: normal inspection of the chest Resp Effort & Inspection: normal respiratory effort and able to speak in complete sentences Cardio Rate: regular rate GI Inspection: Yes normal to inspection General: Yes no CVA tenderness Back/Spine/Pelvis Back: no CVA tenderness Skin General skin exam: no rashes or lesions noted Neuro General: patient oriented x3 Extrem General: Yes normal to inspection Psych Appearance: grossly normal and well kempt Mental Status: mental status grossly normal Speech and movement: Normal speech and movement present and Clear speech present Affect: normal affect Attitude: cooperative Thought process: Normal thought process present Thought content: Normal thought content present Insight: Fair insight present (Psych) Judgement: Fair judgement present (Psych) Results AMB Urinalysis, Automated UA Leukoctes 0 Kj/uL Last Edit by RUFINO Abbott on 09/09/24 10:08 UA Nitrite Negative Last Edit by RUFINO Abbott on 09/09/24 10:08 UA Urobilinogen 0.2 mg/dL Last Edit by RUFINO Abbott on 09/09/24 10:0 8 UA Protein 0 mg/dL Last Edit by RUFINO Abbott on 09/09/24 10:08 UA pH 6.5 Last Edit by RUFINO Abbott on 09/09/24 10:08 UA Blood 0 Juan Pablo/uL Last Edit by RUFINO Abbott on 09/09/24 10:08 UA Specific Lewis 1.010 Last Edit by RUFINO Abbott on 09/09/24 10: 08 UA Ketone Negative Last Edit by RUFINO Abbott on 09/09/24 10:08 UA Bilirubin 0 mg/dL Last Edit by Marija Barbosa CCM on 09/09/24 10:08 UA Glucose 0 mg/dL Last Edit by RUFINO Abbott on 09/09/24 10:08 Results Reviewed Results Reviewed: Laboratory Last Values Urine pH (Auto) 6.5 09/09/24 10:07 Specific Lewis (Auto) 1.010 09/09/24 10:07 Urine Protein (Auto) 0 mg/dL 09/09/24 10:07 Glucose (UA)(Auto) 0 mg/dL 09/09/24 10:07 Urine Ketones (Auto) Negative 09/09/24 10:07 Urine Blood (Auto) 0 Juan Pablo/uL 09/09/24 10:07 Urine Nitrite (Auto) Negative 09/09/24 10:07 Urine Bilirubin (Auto) 0 mg/dL 09/09/24 10:07 Urine Urobilinogen (Auto) 0.2 mg/dL 09/09/24 10:07 Leukocyte Esterase (Auto) 0 Kj/uL 09/09/24 10:07 Date of Service: 07/11/24 Procedure(s): US renal BI Findings: Right kidney normal size and echotexture, 11.2 cm length. Left kidney normal size and echotexture, 12.1 cm length. There are left renal parenchymal calculi. No collecting system dilatation of either kidney. Normal color Doppler. IMPRESSION: 1. Left renal parenchymal calculi. No acute findings. Assessment & Plan Assessment & Plan (1) Hydronephrosis: Code(s): N13.30 - Unspecified hydronephrosis Category: Medical (2) Hydronephrosis concurrent with and due to calculi of kidney and ureter: Code(s): N13.2 - Hydronephrosis with renal and ureteral calculous obstruction Category: Medical (3) Calculus of kidney: Code(s): N20.0 - Calculus of kidney Category: Medical Plan In office urinalysis results reviewed with the patient today; as noted above. Continue to follow-up with nephrology as planned. Recent renal imaging results reviewed with the patient today; as noted above. Discussed potential causes of nephrolithiasis. Patient currently denies any bothersome urinary issues or concerns. She reports be happy with current voiding parameters. Will continue with surveillance monitoring. Discussed, educated, and stressed the importance of adequate hydration relation to nephrolithiasis as well as overall health and well-being. Continue adding 1 oz of lemon juice to water daily. Will obtain renal ultrasound in 1 year Follow-up in 1 year with imaging to be completed prior; or sooner with any issues, concerns, and or questions. Orders: Orders AMB Urinalysis Automated Today Z13.9 - Encounter for screening, unspecified US renal BI 1 Year N20.0 - Calculus of kidney Patient Instructions: The patient had an opportunity to ask questions regarding the treatment plan. All questions were answered. Physical exam, labs, and imaging were discussed and reviewed in detail. As well as risks, benefits, and discussion of treatment choices. No major barriers to understanding were identified. The patient expre ssed understanding and agreement with the above treatment plan. The patient was made aware they should contact our office by phone for worsening of their current condition, the appearance of new symptoms, or with any questions or concerns. Compliance is encouraged with any medications and follow up testing that is ordered. It is a privilege to be allowed the opportunity to participate in? your urological care.? Again, if you have any questions or concerns If you have any questions or concerns please do not hesitate to contact me. The office is [phone]. This note is constructed using voice recognition software. While every effort has been made to ensure accuracy hog slaughterer errors may have been included. Yours sincerely, NIA Garcia Coding Level of Care Code Est Pt Level 3 (48601) Diagnoses Hydronephrosis N13.30 Hydronephrosis concurrent with and due to calculi of kidney and ureter N13.2 Calculus of kidney N20.0
--- OUTSIDE RECORDS SUMMARY | 2024-09-09 10:49 | XMS_ITS | Clinical Summary ---
Author Organization [facility] Address [address] [place] [address] Care Team Providers Care Photonics Engineering Technologist Name Role Phone Unknown Primary Care Provider [phone] Allergies No known active allergies Medications No [...] complete [place] [id number] [facility] Care Teams Photonics Engineering Technologist Relationship Specialty Start Date End Date Unknown Unknow Provider Address PCP - General 05/17/19
--- OUTSIDE RECORDS SUMMARY | 2024-09-09 10:49 | XMS_ITS ---
Author Name [facility] Organization Unknown History of Medication Use Medication Directions Dispensed Refills Start Date End Date Stat us metFORMIN (GLUCOPHAGE) 500 MG tablet Take 1 tablet (500 mg total) by mouth 11/11/2023 active cetirizine (ZyrTEC) 10 MG tablet Take 1 tablet (10 mg total) by mouth 04/05/2023 active Allergies Allergen Reaction Severity Comment Documented Date Source Statu s OXYCODONE 06/12/2024 [facility] active Problems Problem Status Onset Date Problem Type Date of Resolution Source Encounter for examination of blood pressure with abnormal findings active EncounterDiagnosisAct [facility] Encounters Encounter Type Encounter Reason Primary Diagnosis Location Date Ambulatory Other Chief Complaint Encounter for examination of blood pressure with abnormal findings [facility] 06/12/2024 Care Team Organization Name Specialty Phone Email Start Date End Da te [facility] NO PCP Primary Care 06/12
--- OUTSIDE RECORDS SUMMARY | 2024-09-09 10:49 | XMS_ITS | Clinical Summary ---
Author Organization [facility] Address [address] [id number] Phone Care Team Providers Care Commercial Accountant Name Role Phone Zara Gutierrez MD Primary Care Provider [phone] Allergies Active Allergy Reactions Criticality Noted Date Comments Oxycodone 05/24/2024 Other Reaction(s): facial swelling Medications albuterol 90 mcg/actuation inhaler (To-Go) Inhale into the lungs. 11/29/2023 Active cetirizine (ZYRTEC) 10 MG tablet Take 10 mg by mouth. 04/05/2023 Active metFORMIN (GLUCOPHAGE) 500 MG tablet Take 500 mg by mouth. 11/11/2023 Active tobramycin (TOBREX) 0.3 % ophthalmic solution Place 1 drop into each eye every 4 (four) hours. 5 mL 05/24/2024 Active Social History Tobacco Use Types Packs/Day Years Used Date Smoking Tobacco: Never Assessed Education Answer Date Recorded Are you interested in more education? Not on nolan e 05/24/2024 Are you concerned about learning? Not on file 05/24/2024 No 05/24/2024 No 05/24/2024 Digital Access Answer Date Recorded No 05/24/2024 No 05/24/2024 Reliable internet access at home? Not on file 05/24/2024 Device with a working camera? Not on file Comments Unknown Sex and Gender Information Value Date Recorded Sex Assigned at Not on file Legal Sex Female 8:15 AM EDT Gender Identity Not on file Sexual Orientation Not on file Last Filed Vital Signs Vital Sign Reading Time Taken Comments Blood Pressure 112/77 05/24/2024 8:49 AM EDT Pulse 88 05/24/2024 8:49 AM EDT Temperature 36.7 C (98.1 F) 05/24/2024 8:49 AM EDT Respiratory Rate 17 05/24/2024 8:49 AM EDT Oxygen Saturation 98% 05/24/2024 8:49 AM EDT Inhaled Oxygen Concentration - - Weight - - Height - - Body Mass Index - - Plan of Treatment Health Maintenance Due Date Last Done Comments Adult Td,Tdap Booster 1984 CREATININE LEVEL 1984 DEPRESSION SCREENING 1996 SMOKING Hx and SMOKELESS TOB ACCO SCREENING 1997 HEPATITIS C SCREENING 2002 HIV ONE-TIME SCREENING (18-6 5 YEARS) 2002 PAP SMEAR 2005 COVID-19 VACCINE (2023-2 5 season) 2023 HEPATITIS A VACCINES Aged Out No long er eligible based on patient's age to complete this topic HIB VACCINES Aged Out No longer eligi ble based on patient's age to complete this topic MENINGOCOCCAL VACCINES (ACWY) Aged Out No longer eligible based on patient's age to complete this topic MENINGOCOCCAL VACCINES (B) Aged Out N o longer eligible based on patient's age to complete this topic PNEUMOCOCCAL VACCINES (0-49 years) Aged Out No longer eligible based on patient's age to complete this topic Medical Devices Not on file Insurance O HMO HMO HMO [facility] HMO Care Teams Commercial Accountant Relationship Specialty Start Date End Date Zara Gutierrez MD [address] [place] [id number] PCP - General Internal Medicine 05/24/24 Additional Source Comments The information contained in this document represents components of the legal health record. It is not the complete legal health record.[facility]
--- OUTSIDE RECORDS SUMMARY | 2024-09-09 10:49 | XMS_ITS | Clinical Summary ---
Author Organization [facility] Address [id number] [place] [id number] Care Team Providers Care 911 Telecommunicator Name Role Phone Bredna Bo MD Primary Care Provider [phone] Surgical History Surgery Date Site/Laterality Comments UPPER GASTROINTESTINAL ENDOSCOPY PROCEDURE: [place] UPPER GI ENDOSCOPY PERFORMED Medical History Medical [...] 04/12/2007 COVID-19 Vaccine (2023-2 5 season) 2023 Depression Screening 02/14/2024 Influenza Vaccine (#1) 2024 MMR Vaccines Completed 03/08/2007, 07/28/1994 Hepatitis [...] 5 Years) and At-Risk Patients (6 to 49 Years) Aged Out No longer eligible b ased on patient's age to complete this topic RSV Immunization Patients Under 20 months Aged Out No longer eligible b ased on patient's age to complete this topic Care Teams 911 Telecommunicator Relationship Specialty Start Date End Date Brenda Bo MD [address] [place] [address] PCP - General Internal Medicine 10/05/18
== END 2024-09-09 10:32 | disposition home or self-care (01) ==
LOC: HO.HUSH 09:51
PROVIDERS: Visit Provider Nurse Practitioner Family
DX: N13.30 Unspecified hydronephrosis (principal); N13.2 Hydronephrosis with renal and ureteral calculous obstruction; N20.0 Calculus of kidney; Z13.9 Encounter for screening, unspecified
CPT/HCPCS: 99213

== ENCOUNTER → 2024-09-09 09:50 | Outpatient (BNVA) | payer OTHER, SELFPAY | PROVIDERS: Visit Provider Nurse Practitioner Family | DX: N20.0 Calculus of kidney (principal) | CPT/HCPCS: 81003 ==

== ENCOUNTER 2024-12-13 08:23 | Outpatient (REF) | payer OTHER, SELFPAY ==
--- OUTSIDE RECORDS SUMMARY | 2024-12-13 08:35 | XMS_ITS | Clinical Summary ---
Author Organization [facility] Address [address] [place] [address] Care Team Providers Care Jewelry Drilling Machine Operator Name Role Phone Unknown Primary Care Provider [phone] Allergies No known active allergies Medications No [...] Pap Smear (Ages 21-65) 2005 Influenza Vaccine 09/13/2024 COVID-19 Vaccine ( - 2023-2 5 season) 2024 Mammogram 2024 HPV Vaccines (No Doses Required) Completed Pneumococcal Vaccine: Pediat felicita (0-5 Years) and At-Risk Patients (6 to 49 Years) Aged Out No longer eligible b ased on patient's age to complete [place] [id number] [facility] Care Teams Jewelry Drilling Machine Operator Relationship Specialty Start Date End Date Unknown Unknow Provider Address PCP - General 05/17/19
--- OUTSIDE RECORDS SUMMARY | 2024-12-13 08:35 | XMS_ITS | Clinical Summary ---
Author Organization [facility] Address [address] [id number] Phone Care Team Providers Care Salt Washer Harvesting Station Name Role Phone Zara Gutierrez MD Primary Care Provider [phone] Allergies Active Allergy Reactions Criticality Noted Date [...] (18-6 5 YEARS) 2002 PAP SMEAR 2005 INFLUENZA VACCINE (#1) 2024 COVID-19 VACCINE (2024-2 6 season) 2024 MAMMOGRAM 2024 HEPATITIS A VACCINES Aged Out No long [...] topic Medical Devices Not on file Insurance HMO O HMO [facility] HMO Care Teams Salt Washer Harvesting Station Relationship Specialty Start Date End Date Zara Gutierrez MD [address] [place] [id number] PCP - General Internal Medicine 05/24/24 Additional Source Comments The information contained in this document represents components of the legal health record. It is not the complete legal health record.[facility]
--- OUTSIDE RECORDS SUMMARY | 2024-12-13 08:35 | XMS_ITS | Clinical Summary ---
Author Organization [facility] Address [id number] [place] [phone] Care Team Providers Care Backing In Machine Tender Name Role Phone Brenda Bo MD Primary Care Provider [phone] Surgical History Surgery Date Site/Laterality Comments UPPER GASTROINTESTINAL ENDOSCOPY PROCEDURE: [place] UPPER GI ENDOSCOPY PERFORMED Medical History Medical [...] Health Maintenance Due Date Last Done Comments Breast Cancer Screening 1984 Cervical Cancer Screening: P ap Smear 2005 HPV Vaccines (1 - 3-dose SCD M series) 11/19/2011 DTaP,Tdap,and Td Vaccines (3 - Td or Tdap) 07/18/2021 07/19/2011, 04/12/2007 Depression Screening 02/14/2024 COVID-19 Vaccine ( - 2023-2 5 season) 2024 Influenza Vaccine (#1) 2024 RSV Immunization Adult Patients (1 - 1-dose 75+ series) 11/19/2059 MMR Vaccines Completed 03/08/2007, 07/28/1994 Hepatitis B [...] age to complete this topic Care Teams Backing In Machine Tender Relationship Specialty Start Date End Date Brenda Bo MD [address] [place] [address] PCP - General Internal Medicine 10/05/18
[2024-12-13 09:02] LABS: Appearance Urine Clear; Glucose Urine UA Negative (Negative); PH 5.5 (5.0-9.0); Specific Gravity - Urine 1.015 (1.005-1.025)
[2024-12-13 09:26] LABS: Anion Gap 11 (12-20); Blood Urea Nitrogen 9 mg/dL (9-16); Calcium 9.0 mg/dL (8.4-10.2); Carbon Dioxide 25 mmol/L (22-29); Chloride 107 mmol/L (96-108); Estimated Glomerular Filt Rate > 60; Potassium 4.2 mmol/L (3.3-5.1); Sodium 139 mmol/L (135-145)
== END 2024-12-13 08:24 | disposition home or self-care (01) ==
LOC: HO.LAB 08:23
PROVIDERS: Visit Provider Internal Medicine Hypertension Specialist
DX: E21.3 Hyperparathyroidism, unspecified (principal)
CPT/HCPCS: 36415; 80048; 81003

== ENCOUNTER 2024-12-16 10:26 | Outpatient (AMB) | payer OTHER, SELFPAY ==
[2024-12-16 10:30] VITALS: BP 110/74; PULSE 89; O2SAT 98; BMI 26.0
--- NOTE | 2024-12-16 10:30 | HO.NEPHOV ---
Vital Signs 12/16/24 10:30 Height 5 ft 9 in Weight 176 lb BMI 26.0 BP 110/74 Blood Pressure Location Lt brachial Position Sitting Pulse 89 Pulse Source Pulse Oximeter Pulse Oximetry (%) 98 Oxygen Delivery Method Room Air Intake Visit Reasons: 6 MO FU confirmed Executive Officer Required: No Accompanied by: Son Allergies oxycodone Allergy (Verified 12/16/24 10:32) Anaphylaxis Medication List - Last Reconciled 12/16/24 by Wally Mchugh MD acetaminophen (Tylenol) 325 mg PO QID PRN blood sugar diagnostic (OneTouch Verio test strips) check blood sugars once daily blood sugar diagnostic (FreeStyle Lite Strips) As directed test 3 times day blood-glucose meter (OneTouch Verio Flex Meter) check blood sugars once daily blood-glucose meter (FreeStyle Lite Meter kit) As directed lancets (FreeStyle Lancets) As directed metformin 500 mg PO BID HPI Comments Details: Pleasant 37-year-old man with a history of renal stone he is here for renal evaluation. Back in 09/02/2023 she had left-sided ureteral stone with hydronephrosis. She has past stone spontaneously. No follow up imaging has been done yet. She is worried about her overall kidney function. She has no history of prior kidney stones. She has a history of elevated blood sugar. History of -induced hypertension which resolved. 12/25/2023. Recently hospitalized with numbness. Stroke was ruled out she was diagnosed with migraine. Nortriptyline has been started 06/17/2024. [facility] is here for semiannual follow-up. No specific complaints today. Twenty-four urine collection in January showed hyperoxaluria of 68. No further kidney stones. We reviewed her diet 12/16/24 The patient is a 39-year-old female presenting with nephrolithiasis. She was recently seen by a urologist who recommended a follow-up ultrasound in one year, with no interventions required at this time. The patient has a history of Type 2 Diabetes Mellitus, managed with metformin 500 mg daily. Her blood sugar levels are reportedly well-controlled, and she has not needed to increase her medication dosage. The patient also has a history of hypertension, which is currently well-managed with a blood pressure reading of 110/74 mmHg. The patient reports a stable weight, with a slight decrease from 180 pounds last year to 176 pounds currently. She is monitoring her carbohydrate intake and fluid consumption, drinking approximately 48 ounces of water daily. [facility] Medical History Hyperparathyroidism Physical Exam Vital Signs: Last Vital Signs Pulse 89 12/16/24 10:30 BP 110/74 12/16/24 10:30 Pulse Ox 98 12/16/24 10:30 Oxygen Delivery Method Room Air 12/16/24 10:30 BMI result Body Mass Index 26.0 Const General: comfortable; No acute distress Orientation/consciousness: patient oriented x3 Eyes General: appearance normal, both eyes and all related structures Visual Staton: normal visual staton by confrontation Neck Neck: Yes supple and Yes no JVD Resp Effort & Inspection: normal respiratory effort and respiratory effort not decreased Cardio Palpation: no palpable S3 and no palpable S4 Heart sounds: no rubs GI Inspection: Yes normal to inspection Palpation (GI): Soft to palpation Percussion: Yes normal to percussion Auscultation: normal bowel sounds General: Yes no CVA tenderness Back/Spine/Pelvis Back: no CVA tenderness Skin General skin exam: no petechiae and no purpura Neuro General: patient oriented x3 and no focal motor deficits Extrem General: No clubbing and No edema Results Reviewed Nephrology Results: Sodium, (135-145) 139 mmol/L 12/13/24 Potassium, (3.3-5.1) 4.2 mmol/L 12/13/24 Chloride, (96-108) 107 mmol/L 12/13/24 Carbon Dioxide, (22-29) 25 mmol/L 12/13/24 BUN, (9-16) 9 mg/dL 12/13/24 Creatinine, (0.5-1.4) 0.70 mg/dL 12/13/24 Calcium, (8.4-10.2) 9.0 mg/dL 12/13/24 Phosphorus, (2.7-4.5) 2.9 mg/dL 08/02/24 PTH Intact, (8.7-77.1) 47.1 pg/mL 06/14/24 Urine Protein, (Neg-Trace) Negative mg/dL 12/13/24 Urine Creatinine 35.09 mg/dL 06/20/25 Renal US 07/12/24 Assessment & Plan Assessment & Plan (1) Hyperparathyroidism: Code(s): E21.3 - Hyperparathyroidism, unspecified Category: Medical (2) Hydronephrosis concurrent with and due to calculi of kidney and ureter: Code(s): N13.2 - Hydronephrosis with renal and ureteral calculous obstruction Category: Medical (3) Diabetes mellitus: Code(s): E11.9 - Type 2 diabetes mellitus without complications Category: Medical Qualifiers: Diabetes mellitus complication status: without complication Diabetes mellitus thermal surfacing machine operator insulin use: without thermal surfacing machine operator use Diabetes mellitus type: type 2 Qualified Code(s): E11.9 - Type 2 diabetes mellitus without complications Plan Pleasant middle-aged woman with a history of nephrolithiasis. She had left-sided hydronephrosis. She was spontaneously passed the stone. Follow up renal ultrasonogram did not reveal any hydronephrosis. There was a nonobstructing stone on the left midpole measuring 0.5 cm. Continue with Urology follow-up. 24 urine collection collection showed a volume of 1525 mL. Urine sodium excretion and calcium excretion were acceptable. Oxalate excretion was elevated 51. Repeat collection revealed oxalate excretion of 68 Encouraged to increase fluid intake to maintain urine output of 2 L Continue low-sodium diet. She should Cut back on oxalate intake. She has been eating plenty of peanuts along with Spinach We discussed low oxalate diet. Mild secondary hyperparathyroidism. Serum calcium is normal. Intact PTH was 86. Repeat his 46 She follows with the endocrinology Overall renal function is stable. Orders: Orders Sodium Urine Random 1 Year N13.30 - Unspecified hydronephrosis Creatinine Urine 1 Year N13.30 - Unspecified hydronephrosis Total Protein Urine Random 1 Year N13.30 - Unspecified hydronephrosis UA and rflx microscopic 1 Year N13.30 - Unspecified hydronephrosis Coding Level of Care Code Est Pt Level 4 (81330) Diagnoses Hyperparathyroidism E21.3 Hydronephrosis concurrent with and due to calculi of kidney and ureter N13.2 Type 2 diabetes mellitus without complication, without long-term current use of insulin E11.9 Diabetes mellitus complication status: without complication Diabetes mellitus thermal surfacing machine operator insulin use: without detention use Diabetes mellitus type: type 2
--- OUTSIDE RECORDS SUMMARY | 2024-12-16 12:31 | XMS_ITS | Clinical Summary ---
Author Organization [facility] Address [address] [place] [id number] Care Team Providers Care Performance Test Consultant Name Role Phone Unknown Primary Care Provider [phone] Allergies No known active allergies Medications No [...] complete [place] [id number] [facility] Care Teams Performance Test Consultant Relationship Specialty Start Date End Date Unknown Unknow Provider Address PCP - General 05/17/19
--- OUTSIDE RECORDS SUMMARY | 2024-12-16 12:32 | XMS_ITS | Clinical Summary ---
Author Organization [facility] Address [address] [id number] Phone Care Team Providers Care Fire Sprinkler Service Technician Name Role Phone Zara Gutierrez MD Primary Care Provider [phone] Allergies Active Allergy Reactions Criticality Noted Date [...] Insurance HMO O [facility] HMO Care Teams Fire Sprinkler Service Technician Relationship Specialty Start Date End Date Zara Gutierrez MD [address] [place] [id number] PCP - General Internal Medicine 05/24/24 Additional Source Comments The information contained in this document represents components of the legal health record. It is not the complete legal health record.[facility]
--- OUTSIDE RECORDS SUMMARY | 2024-12-16 12:32 | XMS_ITS | Clinical Summary ---
Author Organization [facility] Address [id number] [place] [id number] Care Team Providers Care Replanting Machine Operator Name Role Phone Brenda Bo MD Primary Care Provider [phone] Surgical History Surgery Date Site/Laterality Comments UPPER GASTROINTESTINAL ENDOSCOPY PROCEDURE: [place] UPPER GI ENDOSCOPY PERFORMED Medical History Medical [...] age to complete this topic Care Teams Replanting Machine Operator Relationship Specialty Start Date End Date Brenda Bo MD [address] [place] [address] PCP - General Internal Medicine 10/05/18
== END 2024-12-16 10:43 | disposition home or self-care (01) ==
LOC: HO.HKA 10:27
PROVIDERS: Visit Provider Internal Medicine Hypertension Specialist
DX: E21.3 Hyperparathyroidism, unspecified (principal); N13.2 Hydronephrosis with renal and ureteral calculous obstruction; E11.9 Type 2 diabetes mellitus without complications
CPT/HCPCS: 99214